=== PATIENT | female | born 1980 | race Caucasian/White ===

== ENCOUNTER 2018-09-17 17:06 | Emergency (ER) | payer OTHER, SELFPAY ==
[2018-09-17 17:18] VITALS: BP 137/87; PULSE 89; RESP 22; TEMP 36.8; O2SAT 97; BMI 36.9
[2018-09-17 17:36] LABS: Bacteria Urine None Seen
--- NOTE | 2018-09-17 17:42 | ED.ABDPAIN ---
HPI - Abdominal Pain <[facility] - Last Filed: 09/17/18 22:32> General Chief Complaint: Abdominal Pain Stated Complaint: INTENSE ABDOMINAL PAIN Time Seen by Provider: 09/17/18 17:26 Source: patient and family Mode of arrival: ambulatory Limitations: no limitations History of Present Illness HPI narrative: Patient is a nonsmoker 38-year-old female who chief complaint of right lower quadrant pain and back pain, diarrhea, and presents with vomiting x 1. She denies fever, dysuria, chest pain or shortness of breath. Pain and diarrhea have been ongoing for 6 weeks, worsening today. She has had gastric sleeve in 2016, an appy and gallbladder removal. She has also had a hysterectomy and states she only has her ovaries left. She has a history of PCOS. She later admits that she is concerned she is BRCA2 positive and has been attempting to find primary care locally but has been unable to do so. Related Data Previous Rx's Medication Instructions Recorded escitalopram 20 mg tablet 20 mg PO DAILY #30 tab MDD 20 mg 05/28/18 ondansetron 4 mg PO TID PRN 5 Days #20 tab 09/17/18 oxycodone-acetaminophen 1 tab PO Q4-6H PRN #14 tab 09/17/18 Allergies Allergy/AdvReac Type Severity Reaction Status Date / Time NSAIDS (Non-Steroidal AdvReac Verified 09/17/18 17:18 Anti-Inflamma Review of Systems <[facility] - Last Filed: 09/17/18 22:32> Review of Systems GENERAL: Denies chills, fatigue, malaise, fever, sweats. HEENT: Denies sinus pain, ear pain, sore throat, difficulty swallowing, dizziness. RESPIRATORY: Denies dyspnea, cough, wheezing, hemoptysis, sputum. CARDIOVASCULAR: Denies chest pain, palpitations, orthopnea, edema, GASTROINTESTINAL: see HPI : Denies dysuria, frequency, incontinence, hematuria, urinary retention. MUSCULOSKELETAL: denies weakness, joint pain, or bony pain SKIN: Denies rash, skin lesions, or other NEUROLOGIC: Denies weakness, headache, numbness, change in speech, confusion, seizures, incoordination. PSYCHIATRIC: No concerning psychosocial issues. 12 point review of systems is negative except for those stated above Exam <[facility] - Last Filed: 09/17/18 22:32> Narrative Exam Narrative: GENERAL: This is a well-nourished, well-developed patient, laying on side in position HEAD: Atraumatic. Normocephalic. No temporal or scalp tenderness. EYES: Pupils equal round and reactive. Extraocular motions intact. No scleral icterus. No injection or drainage. ENT: Nose without bleeding, purulent drainage or septal hematoma. Throat without erythema, tonsillar hypertrophy or exudate. Uvula midline. Airway patent. NECK: Trachea midline. No JVD or lymphadenopathy. Supple, nontender, no meningeal signs. CARDIOVASCULAR: Regular rate and rhythm without murmurs, gallops, or rubs. RESPIRATORY: Clear to auscultation. Breath sounds equal bilaterally. No wheezes, rales, or rhonchi. No cough. No increased respiratory effort. GASTROINTESTINAL: Abdomen soft, tenderness to palpation right lower quadrant nondistended. No hepato-splenomegaly, or palpable masses. No guarding. EXTREMITIES: No clubbing, cyanosis, or edema. No joint tenderness, effusion, or edema noted. BACK: Nontender without deformity or crepitance. Bilateral flank tenderness NEURO: AOx3. SKIN: No rash or erythema. Initial Vital Signs Initial Vital Signs: Vital Signs Temperature 98.2 F 09/17/18 17:18 Pulse Rate 89 09/17/18 17:18 Respiratory Rate 22 09/17/18 17:18 Blood Pressure 137/87 09/17/18 17:18 Pulse Oximetry 97 09/17/18 17:18 <Liliana Jon DO - Last Filed: 09/18/18 02:58> Initial Vital Signs Initial Vital Signs: Vital Signs Temperature 98.2 F 09/17/18 17:18 Pulse Rate 89 09/17/18 17:18 Respiratory Rate 22 09/17/18 17:18 Blood Pressure 137/87 09/17/18 17:18 Pulse Oximetry 97 09/17/18 17:18 Course <GAURAV EricksonBC - Last Filed: 09/17/18 22:32> Course Narrative: A checked on the patient several times that her stay in the emergency department. At 18:30 the patient declined further pain medication. At 21:00 I discussed with the patient her CT results and that CT illustrated a large mass on her right adnexa. Discussed plan to obtain an ultrasound to further evaluate this mass. Patient is okay with this plan. Offered Toradol for pain, which she states she can take. Patient declined further nausea medication at this point time. at 22:30 I discussed the ultrasound findings of a simple ovarian cyst. Orders Ordered: ED Orders 09/17/18 18:06 CT abdomen pelvis w con Stat 09/17/18 21:04 US pelvic complete Stat Discontinued Medications Sodium Chloride (Normal Saline 0.9%) 1,000 mls @ 1,000 mls/hr IV BOLUS ONE Stop: 09/17/18 18:34 Last Infusion: 09/17/18 22:43 Dose: 0 mls/hr Infusion: 09/17/18 20:19 Dose: 0 mls/hr Admin: 09/17/18 17:53 Dose: 1,000 mls/hr Sodium Chloride (Normal Saline 0.9%) 1,000 mls @ 1,000 mls/hr IV BOLUS ONE Stop: 09/17/18 22:12 Last Infusion: 09/17/18 22:48 Dose: 1,000 mls/hr Admin: 09/17/18 21:35 Dose: 1,000 mls/hr Ketorolac Tromethamine (Toradol) 30 mg IV NOW ONE Stop: 09/17/18 21:14 Last Admin: 09/17/18 21:34 Dose: 30 mg Morphine Sulfate (Morphine) 4 mg IV NOW ONE Stop: 09/17/18 17:42 Last Admin: 09/17/18 17:53 Dose: 4 mg Ondansetron HCl (Zofran) 4 mg IV NOW ONE Stop: 09/17/18 17:42 Last Admin: 09/17/18 17:53 Dose: 4 mg Ondansetron HCl (Zofran Odt Prepack) 1 bottle MISC SEEINSTR ONE Stop: 09/17/18 22:16 Last Admin: 09/17/18 22:36 Dose: 1 bottle Oxycodone/Acetaminophen (Endocet 5/325 Prepack) 1 bottle MISC SEEINSTR ONE Stop: 09/17/18 22:16 Last Admin: 09/17/18 22:36 Dose: 1 bottle Vital Signs - 8 hr 09/17/18 20:30 09/17/18 21:44 Pulse Rate 60 66 Respiratory Rate 16 18 Blood Pressure [Left Arm] 131/74 126/79 Pulse Oximetry 98 99 <Liliana Jon DO - Last Filed: 09/18/18 02:58> Orders Ordered: ED Orders 09/17/18 18:06 CT abdomen pelvis w con Stat 09/17/18 21:04 US pelvic complete Stat Discontinued Medications Sodium Chloride (Normal Saline 0.9%) 1,000 mls @ 1,000 mls/hr IV BOLUS ONE Stop: 09/17/18 18:34 Last Infusion: 09/17/18 22:43 Dose: 0 mls/hr Infusion: 09/17/18 20:19 Dose: 0 mls/hr Admin: 09/17/18 17:53 Dose: 1,000 mls/hr Sodium Chloride (Normal Saline 0.9%) 1,000 mls @ 1,000 mls/hr IV BOLUS ONE Stop: 09/17/18 22:12 Last Infusion: 09/17/18 22:48 Dose: 1,000 mls/hr Admin: 09/17/18 21:35 Dose: 1,000 mls/hr Ketorolac Tromethamine (Toradol) 30 mg IV NOW ONE Stop: 09/17/18 21:14 Last Admin: 09/17/18 21:34 Dose: 30 mg Morphine Sulfate (Morphine) 4 mg IV NOW ONE Stop: 09/17/18 17:42 Last Admin: 09/17/18 17:53 Dose: 4 mg Ondansetron HCl (Zofran) 4 mg IV NOW ONE Stop: 09/17/18 17:42 Last Admin: 09/17/18 17:53 Dose: 4 mg Ondansetron HCl (Zofran Odt Prepack) 1 bottle MISC SEEINSTR ONE Stop: 09/17/18 22:16 Last Admin: 09/17/18 22:36 Dose: 1 bottle Oxycodone/Acetaminophen (Endocet 5/325 Prepack) 1 bottle MISC SEEINSTR ONE Stop: 09/17/18 22:16 Last Admin: 09/17/18 22:36 Dose: 1 bottle Vital Signs - 8 hr 09/17/18 20:30 09/17/18 21:44 Pulse Rate 60 66 Respiratory Rate 16 18 Blood Pressure [Left Arm] 131/74 126/79 Pulse Oximetry 98 99 MDM - Abdominal Pain <BECKY Erickson-BC - Last Filed: 09/17/18 22:32> Lab Data Attestation: I reviewed the patient's lab results. Result diagrams: 09/17/18 17:20 09/17/18 17:20 Lab Results 09/17/18 09/17/18 09/17/18 Range/Units 17:20 17:20 17:23 WBC 7.8 (4.5-11.0) X10^3/uL RBC 4.56 (4.0-5.2) X10^6/uL Hgb 14.2 (12.0-16.0) g/dL Hct 42.0 (36-46) % MCV 92.1 (80-100) fL MCH 31.1 (26-34) PG MCHC 33.7 (30-36) % RDW 13.0 (11.6-14.8) % Plt Count 190 (150-400) X10^3/uL Neut % (Auto) 56.5 (50-75) % Lymph % (Auto) 30.6 (25-40) % [place] % (Auto) 11.2 (3-14) % Eos % (Auto) 1.2 L (2-4) % Baso % (Auto) 0.5 (0-2) % Neut # (Auto) 4400 (8953-4981) /uL Sodium 138 (137-145) mmol/L Potassium 3.7 (3.4-5.1) mmol/L Chloride 105 (98-107) mmol/L Carbon Dioxide 24 (22-32) mmol/L BUN 13 (7-17) mg/dL Creatinine 0.50 L (0.52-1.04) mg/dL Estimated GFR > 60.0 (>60) mL/min BUN/Creatinine Ratio 26.0 H (6-22) Glucose 118 H (70-100) mg/dL Lactate (0.7-2.1) mmol/L Calcium 9.0 (8.4-10.2) mg/dL Total Bilirubin 1.0 (0.2-1.3) mg/dL AST 39 H (14-36) IU/L ALT 47 (9-52) IU/L Alkaline Phosphatase 57 (38-126) U/L Total Creatine Kinase 56 (30-135) U/L CK-MB (CK-2) TNP CK-MB (CK-2) Rel Index TNP Troponin I < 0.012 (0.01-0.034) ng/mL Total Protein 7.1 (6.3-8.2) g/dL Albumin 4.2 (3.5-5.0) g/dL Globulin 2.9 (1.7-4.1) g/dL Albumin/Globulin Ratio 1.4 (1.0-2.8) Amylase 35 (30-110) U/L Lipase 82 (23-300) U/L Urine RBC 5-10/hpf H (0-5/HPF) Urine WBC 5-10/hpf H (0-5/HPF) Ur Squamous Epith Cells 5-10 /hpf H Urine Bacteria None seen (None) Ur Culture Indicated? Cult not indicated Micro UA Comment Not Reportable 09/17/18 Range/Units 17:45 WBC (4.5-11.0) X10^3/uL RBC (4.0-5.2) X10^6/uL Hgb (12.0-16.0) g/dL Hct (36-46) % MCV (80-100) fL MCH (26-34) PG MCHC (30-36) % RDW (11.6-14.8) % Plt Count (150-400) X10^3/uL Neut % (Auto) (50-75) % Lymph % (Auto) (25-40) % [place] % (Auto) (3-14) % Eos % (Auto) (2-4) % Baso % (Auto) (0-2) % Neut # (Auto) (6138-0583) /uL Sodium (137-145) mmol/L Potassium (3.4-5.1) mmol/L Chloride (98-107) mmol/L Carbon Dioxide (22-32) mmol/L BUN (7-17) mg/dL Creatinine (0.52-1.04) mg/dL Estimated GFR (>60) mL/min BUN/Creatinine Ratio (6-22) Glucose (70-100) mg/dL Lactate 1.3 (0.7-2.1) mmol/L Calcium (8.4-10.2) mg/dL Total Bilirubin (0.2-1.3) mg/dL AST (14-36) IU/L ALT (9-52) IU/L Alkaline Phosphatase (38-126) U/L Total Creatine Kinase (30-135) U/L CK-MB (CK-2) CK-MB (CK-2) Rel Index Troponin I (0.01-0.034) ng/mL Total Protein (6.3-8.2) g/dL Albumin (3.5-5.0) g/dL Globulin (1.7-4.1) g/dL Albumin/Globulin Ratio (1.0-2.8) Amylase (30-110) U/L Lipase (23-300) U/L Urine RBC (0-5/HPF) Urine WBC (0-5/HPF) Ur Squamous Epith Cells Urine Bacteria (None) Ur Culture Indicated? Micro UA Comment Point of care testing: Urine Dip Bedside Urine Glucose Negative Bedside Urine Bilirubin - Negative Bedside Urine Ketone - Negative Urine Specific [place] 1.030 Bedside Urine Occult Blood + Bedside Urine pH 6.0 Bedside Urine Protein - Negative Bedside Urine Urobilinogen - Negative Bedside Urine Nitrite - Negative Bedside Urine Leukocytes - Negative Esterase Imaging Data pelvic US: Radiologist's impression: View Report History Print [address] [address] Ultrasound Report Signed Patient: Susan Randle MR#: [id number] : 1980 Acct:[id number] Age/Sex: 38 / F Date of Service: 09/17/18 Loc: ED Accession Number: [id number] Procedure: US pelvic complete Ordering Provider: Bri Palomino [facility]- PROCEDURE: US PELVIC COMPLETE INDICATIONS: RIGHT PELVIC PAIN; ABNORMAL CT TECHNIQUE: Real-time scanning was performed of the pelvic organs, with image documentation. Additional endovaginal scanning was necessary due to incomplete visualization of the adnexal and endometrial structures by transabdominal scanning. COMPARISON: [facility], CT, CT ABDOMEN PELVIS W CON, 09/17/2018, 19:38. FINDINGS: Transabdominal scanning: Limited scanning through the kidneys shows no hydronephrosis. No pathologic free abdominal or pelvic fluid. Endovaginal scanning: Uterus: Uterus is surgically absent. Ovaries: On the left the ovary measures 2.6 x 3.5 x 3.2 cm and contains a 1.9 cm simple cyst. Above the left ovary there is a 4 x 4 by 9 cm serpiginous tubular fluid-filled structure most likely hydrosalpinx. The right ovary is not seen as a normal structure but there is a relatively large simple appearing cyst at the right adnexa measuring up to 6.8 x 5.6 x 7.4 cm. IMPRESSION: A absent uterus. Large simple cyst at the right adnexa and a normal appearing right ovary could not be located. These cysts identified on the right measures up to 7.4 cm and is best seen by transabdominal scanning. Followup pelvic ultrasound in 6-8 weeks to confirm resolution of this finding is recommended. The left ovary contains a 1.9 cm simple cyst and immediately above the left ovary is a tubular serpiginous fluid-filled structure discussed above most likely hydrosalpinx. Dictated by: Dony William M.D. on 09/17/2018 at 21:58 Approved by: Dony William M.D. on 09/17/2018 at 22:[address]: Radiologist's impression: [place] [address] CT Scan Report Signed Patient: Susan Randle MR#: [id number] : 1980 Acct:[id number] Age/Sex: 38 / F Date of Service: 09/17/18 Loc: ED Accession Number: [id number] Procedure: CT abdomen pelvis w con Ordering Provider: Bri Palomino [facility] PROCEDURE: CT ABDOMEN PELVIS W CON INDICATIONS: abd pain, mult abd surg TECHNIQUE: After the administration of intravenous contrast, 5 mm thick sections acquired from the diaphragm to the symphysis. 5 mm coronal and sagittal reformats were acquired. For radiation dose reduction, the following was used: automated exposure control, adjustment of mA and/or kV according to patient size. COMPARISON: None. FINDINGS: Image quality: Excellent. ABDOMEN: Lung bases: Lung bases are clear. Heart size is normal. Solid organs: Liver is normal in size and enhancement. Gallbladder has been previously resected. Biliary system is non dilated. Pancreas enhances normally. Spleen is normal in size and enhancement. No adrenal nodules. Kidneys demonstrate normal size and enhancement, without hydronephrosis. Peritoneum and bowel: Bowel loops demonstrate normal wall thickness and caliber. No free fluid or air. A pattern of surgical clips along the gastric margin superiorly suggest prior gastric reduction surgery. Note is made of a large cystic structure at the right adnexa measuring up to 6.7 cm AP and 6.3 cm transverse, with a craniocaudad dimension of 6.0 cm. There also is a set of 2 adjacent cysts at the left ovary, the largest of which measures up to 3.9 cm and the smaller of which measures only 2.2 cm. No adjacent free fluid or evidence of hemorrhagic cyst is found. Nodes and vessels: No retroperitoneal or mesenteric adenopathy by size criteria. Aorta and inferior vena cava are normal in size. Miscellaneous: No ventral hernias. PELVIS: Genitourinary: Bladder wall thickness is normal. Miscellaneous: No inguinal hernias or adenopathy. Bones: No suspicious bony lesions. No vertebral body compression fractures. IMPRESSION: 1. Prior cholecystectomy. 2. Gastric reduction surgery without evidence of operative complication. 3. Large right adnexal cystic structure may represent a cystic neoplasm. Followup pelvic ultrasound in 6-8 weeks is recommended to confirm resolution of this large abnormality which measures up to 6.7 cm. 4. Prominent cystic structure at the left ovary adjacent to the smaller cysts, with the larger structure measuring up to 3.9 cm. Pelvic ultrasound is recommended in 6-8 weeks to confirm resolution. Dictated by: Dony William M.D. on 09/17/2018 at 20:51 Approved by: Dony William M.D. on 09/17/2018 at 20:54 MDM Narrative Medical decision making narrative: Patient is a 38-year-old female who presents with chief complaint of flank pain and right lower quadrant pain. She had a grossly normal lab work, is afebrile and hemodynamically stable. Given her history of multiple abdominal surgeries combined with severe pain, obtained a CT scan which illustrated a large cystic structure the right adnexa. I also obtained a pelvic ultrasound, which confirmed the presence of a large right likely ovarian cyst. She was treated with Zofran, pain medication and fluids in the emergency department. I discussed at length follow up with primary care provider. Discussed come back to the emergency department for any acute concerns. Patient does not have any questions or concerns upon discharge. <Liliana Jon, DO - Last Filed: 09/18/18 02:58> Lab Data Lab Results 09/17/18 09/17/18 09/17/18 Range/Units 17:20 17:20 17:23 WBC 7.8 (4.5-11.0) X10^3/uL RBC 4.56 (4.0-5.2) X10^6/uL Hgb 14.2 (12.0-16.0) g/dL Hct 42.0 (36-46) % MCV 92.1 (80-100) fL MCH 31.1 (26-34) PG MCHC 33.7 (30-36) % RDW 13.0 (11.6-14.8) % Plt Count 190 (150-400) X10^3/uL Neut % (Auto) 56.5 (50-75) % Lymph % (Auto) 30.6 (25-40) % [place] % (Auto) 11.2 (3-14) % Eos % (Auto) 1.2 L (2-4) % Baso % (Auto) 0.5 (0-2) % Neut # (Auto) 4400 (8685-3286) /uL Sodium 138 (137-145) mmol/L Potassium 3.7 (3.4-5.1) mmol/L Chloride 105 (98-107) mmol/L Carbon Dioxide 24 (22-32) mmol/L BUN 13 (7-17) mg/dL Creatinine 0.50 L (0.52-1.04) mg/dL Estimated GFR > 60.0 (>60) mL/min BUN/Creatinine Ratio 26.0 H (6-22) Glucose 118 H (70-100) mg/dL Lactate (0.7-2.1) mmol/L Calcium 9.0 (8.4-10.2) mg/dL Total Bilirubin 1.0 (0.2-1.3) mg/dL AST 39 H (14-36) IU/L ALT 47 (9-52) IU/L Alkaline Phosphatase 57 (38-126) U/L Total Creatine Kinase 56 (30-135) U/L CK-MB (CK-2) TNP CK-MB (CK-2) Rel Index TNP Troponin I < 0.012 (0.01-0.034) ng/mL Total Protein 7.1 (6.3-8.2) g/dL Albumin 4.2 (3.5-5.0) g/dL Globulin 2.9 (1.7-4.1) g/dL Albumin/Globulin Ratio 1.4 (1.0-2.8) Amylase 35 (30-110) U/L Lipase 82 (23-300) U/L Urine RBC 5-10/hpf H (0-5/HPF) Urine WBC 5-10/hpf H (0-5/HPF) Ur Squamous Epith Cells 5-10 /hpf H Urine Bacteria None seen (None) Ur Culture Indicated? Cult not indicated Micro UA Comment Not Reportable 09/17/18 Range/Units 17:45 WBC (4.5-11.0) X10^3/uL RBC (4.0-5.2) X10^6/uL Hgb (12.0-16.0) g/dL Hct (36-46) % MCV (80-100) fL MCH (26-34) PG MCHC (30-36) % RDW (11.6-14.8) % Plt Count (150-400) X10^3/uL Neut % (Auto) (50-75) % Lymph % (Auto) (25-40) % [place] % (Auto) (3-14) % Eos % (Auto) (2-4) % Baso % (Auto) (0-2) % Neut # (Auto) (9426-2243) /uL Sodium (137-145) mmol/L Potassium (3.4-5.1) mmol/L Chloride (98-107) mmol/L Carbon Dioxide (22-32) mmol/L BUN (7-17) mg/dL Creatinine (0.52-1.04) mg/dL Estimated GFR (>60) mL/min BUN/Creatinine Ratio (6-22) Glucose (70-100) mg/dL Lactate 1.3 (0.7-2.1) mmol/L Calcium (8.4-10.2) mg/dL Total Bilirubin (0.2-1.3) mg/dL AST (14-36) IU/L ALT (9-52) IU/L Alkaline Phosphatase (38-126) U/L Total Creatine Kinase (30-135) U/L CK-MB (CK-2) CK-MB (CK-2) Rel Index Troponin I (0.01-0.034) ng/mL Total Protein (6.3-8.2) g/dL Albumin (3.5-5.0) g/dL Globulin (1.7-4.1) g/dL Albumin/Globulin Ratio (1.0-2.8) Amylase (30-110) U/L Lipase (23-300) U/L Urine RBC (0-5/HPF) Urine WBC (0-5/HPF) Ur Squamous Epith Cells Urine Bacteria (None) Ur Culture Indicated? Micro UA Comment Point of care testing: Urine Dip Bedside Urine Glucose Negative Bedside Urine Bilirubin - Negative Bedside Urine Ketone - Negative Urine Specific [place] 1.030 Bedside Urine Occult Blood + Bedside Urine pH 6.0 Bedside Urine Protein - Negative Bedside Urine Urobilinogen - Negative Bedside Urine Nitrite - Negative Bedside Urine Leukocytes - Negative Esterase Discharge Plan Departure Patient Disposition: Home Clinical Impression: Ovarian cyst, Abdominal pain Discharge Date/Time: 09/17/18 22:50 Interventions: ED Discharge Assessment Last Done: 09/17/18 22:49 Instructions: DI for Ovarian Cyst, DI for Abdominal Pain-Adult Activity Restrictions/Additional Instructions: Your CT scan and ultrasound showed a large ovarian cyst on your right side. Also shows a smaller cyst on your left side. Please follow-up with primary care provider for further workup including imaging in the future if needed. I have given you a prescription of pain medication and nausea medication. Please do not take Tylenol in addition to the pain medication. Please be aware can be sedating so do not drive on it and please be aware can be constipating so please drink lots of fluids any lots of fiber. Come back to the emergency department for any acute concerns. I have given you a list of primary care providers accepting new patients in the area, so hopefully one of these providers be able to see you. Prescriptions: New oxycodone-acetaminophen 5-325 mg tablet 1 tab PO Q4-6H PRN (Reason: pain) Qty: 14 RF: 0 ondansetron 4 mg tablet,disintegrating 4 mg PO TID PRN (Reason: nausea and vomiting) 5 Days Qty: 20 RF: 0 No Action escitalopram oxalate 20 mg tablet 20 mg PO DAILY MDD 20 mg Qty: 30 RF: 5 <Liliana Jon DO - Last Filed: 09/18/18 02:58> [facility] ED Attending [place] Attestation: I was immediately available in the department for consultation. Documentation has been reviewed. I agree with assessment and plan.
[2018-09-17 17:43] LABS: RBC Urine 5-10/HPF (0-5/HPF); Squamous Epithelial Cell Urine 5-10 /HPF; WBC Urine 5-10/HPF (0-5/HPF)
[2018-09-17 17:44] LABS: Culture Indicated Urine Cult Not Indicated
[2018-09-17 17:45] LABS: Add Manual Diff / Slide Review NO; Basophils Percent Auto 0.5 % (0-2); Eosinophils Percent Auto 1.2 % (2-4); Hemoglobin 14.2 g/dL (12.0-16.0); Lymphocytes Percent Auto 30.6 % (25-40); Mean Corpuscular HGB Conc 33.7 % (30-36); Mean Corpuscular Hemoglobin 31.1 PG (26-34); Mean Corpuscular Volume 92.1 fL (80-100); Monocytes Percent Auto 11.2 % (3-14); Neutrophils Absolute Auto 4400 /uL (1500-7000); Neutrophils Percent Auto 56.5 % (50-75); Platelet Count 190 X10^3/uL (150-400); Red Blood Cell Count 4.56 X10^6/uL (4.0-5.2); White Blood Cell Count 7.8 X10^3/uL (4.5-11.0)
[2018-09-17 17:49] LABS: Alanine Aminotransferase 47 IU/L (9-52); Albumin 4.2 g/dL (3.5-5.0); Albumin Globulin Ratio 1.4 (1.0-2.8); Alkaline Phosphatase 57 U/L (38-126); Amylase 35 U/L (30-110); Aspartate Aminotransferase 39 IU/L (14-36); Blood Urea Nitrogen 13 mg/dL (7-17); Carbon Dioxide 24 mmol/L (22-32); Chloride 105 mmol/L (98-107); Creatine Kinase 56 U/L (30-135); Estimated Glomerular Filt Rate > 60.0 mL/min (>60); Globulin 2.9 g/dL (1.7-4.1); Glucose 118 mg/dL (70-100); HEMOLYSIS 19 (0-50); Lipase 82 U/L (23-300); Potassium 3.7 mmol/L (3.4-5.1); Sodium 138 mmol/L (137-145); Total Protein 7.1 g/dL (6.3-8.2)
[2018-09-17] MEDS: MORPHINE 4 MG/ML INJ IV (17:53)
[2018-09-17] MEDS: SODIUM CHLORIDE 0.9% 1,000 ML 1000 ML IV ×2 (17:53→21:35)
[2018-09-17] MEDS: ONDANSETRON 4 MG/2 ML INJ IV (17:53)
[2018-09-17 18:03] LABS: Lactate (Lactic Acid) 1.3 mmol/L (0.7-2.1)
[2018-09-17 18:04] LABS: Troponin I < 0.012 ng/mL (0.01-0.034)
--- NOTE | 2018-09-17 18:06 | DI.CT.S_ITS ---
PROCEDURE: CT ABDOMEN PELVIS W CON INDICATIONS: abd pain, mult abd surg TECHNIQUE: After the administration of intravenous contrast, 5 mm thick sections acquired from the diaphragm to the symphysis. 5 mm coronal and sagittal reformats were acquired. For radiation dose reduction, the following was used: automated exposure control, adjustment of mA and/or kV according to patient size. COMPARISON: None. FINDINGS: Image quality: Excellent. ABDOMEN: Lung bases: Lung bases are clear. Heart size is normal. Solid organs: Liver is normal in size and enhancement. Gallbladder has been previously resected. Biliary system is non dilated. Pancreas enhances normally. Spleen is normal in size and enhancement. No adrenal nodules. Kidneys demonstrate normal size and enhancement, without hydronephrosis. Peritoneum and bowel: Bowel loops demonstrate normal wall thickness and caliber. No free fluid or air. A pattern of surgical clips along the gastric margin superiorly suggest prior gastric reduction surgery. Note is made of a large cystic structure at the right adnexa measuring up to 6.7 cm AP and 6.3 cm transverse, with a craniocaudad dimension of 6.0 cm. There also is a set of 2 adjacent cysts at the left ovary, the largest of which measures up to 3.9 cm and the smaller of which measures only 2.2 cm. No adjacent free fluid or evidence of hemorrhagic cyst is found. Nodes and vessels: No retroperitoneal or mesenteric adenopathy by size criteria. Aorta and inferior vena cava are normal in size. Miscellaneous: No ventral hernias. PELVIS: Genitourinary: Bladder wall thickness is normal. Miscellaneous: No inguinal hernias or adenopathy. Bones: No suspicious bony lesions. No vertebral body compression fractures. IMPRESSION: 1. Prior cholecystectomy. 2. Gastric reduction surgery without evidence of operative complication. 3. Large right adnexal cystic structure may represent a cystic neoplasm. Followup pelvic ultrasound in 6-8 weeks is recommended to confirm resolution of this large abnormality which measures up to 6.7 cm. 4. Prominent cystic structure at the left ovary adjacent to the smaller cysts, with the larger structure measuring up to 3.9 cm. Pelvic ultrasound is recommended in 6-8 weeks to confirm resolution. Dictated by: Dony William M.D. on 09/17/2018 at 20:51 Approved by: Dony William M.D. on 09/17/2018 at 20:54
[2018-09-17 18:35] VITALS: BP 118/71; PULSE 66; RESP 15; TEMP 36.7; O2SAT 99
[2018-09-17 20:30] VITALS: BP 131/74; PULSE 60; RESP 16; O2SAT 98
--- NOTE | 2018-09-17 21:04 | DI.US.S_ITS ---
PROCEDURE: US PELVIC COMPLETE INDICATIONS: RIGHT PELVIC PAIN; ABNORMAL CT TECHNIQUE: Real-time scanning was performed of the pelvic organs, with image documentation. Additional endovaginal scanning was necessary due to incomplete visualization of the adnexal and endometrial structures by transabdominal scanning. COMPARISON: [facility], CT, CT ABDOMEN PELVIS W CON, 09/17/2018, 19:38. FINDINGS: Transabdominal scanning: Limited scanning through the kidneys shows no hydronephrosis. No pathologic free abdominal or pelvic fluid. Endovaginal scanning: Uterus: Uterus is surgically absent. Ovaries: On the left the ovary measures 2.6 x 3.5 x 3.2 cm and contains a 1.9 cm simple cyst. Above the left ovary there is a 4 x 4 by 9 cm serpiginous tubular fluid-filled structure most likely hydrosalpinx. The right ovary is not seen as a normal structure but there is a relatively large simple appearing cyst at the right adnexa measuring up to 6.8 x 5.6 x 7.4 cm. IMPRESSION: A absent uterus. Large simple cyst at the right adnexa and a normal appearing right ovary could not be located. These cysts identified on the right measures up to 7.4 cm and is best seen by transabdominal scanning. Followup pelvic ultrasound in 6-8 weeks to confirm resolution of this finding is recommended. The left ovary contains a 1.9 cm simple cyst and immediately above the left ovary is a tubular serpiginous fluid-filled structure discussed above most likely hydrosalpinx. Dictated by: Dony William M.D. on 09/17/2018 at 21:58 Approved by: Dony William M.D. on 09/17/2018 at 22:02
[2018-09-17] MEDS: KETOROLAC 60 MG/2 ML VIAL 30 MG IV (21:34)
[2018-09-17 21:44] VITALS: BP 126/79; PULSE 66; RESP 18; O2SAT 99
[2018-09-17] MEDS: OXYCODONE/APAP 5/325 PREPACK 1 BOTTLE MISC (22:36)
[2018-09-17] MEDS: ONDANSETRON 4 MG ODT PREPACK 1 BOTTLE MISC (22:36)
== END 2018-09-17 22:50 | disposition home or self-care (01) ==
PROVIDERS: Emergency Provider Nurse Practitioner Family
DX: N83.209 Unspecified ovarian cyst, unspecified side (principal); R10.9 Unspecified abdominal pain
CPT/HCPCS: 36591; 74177; 76830; 76856; 80053; 81003; 81015; 82150; 82550; 83605; 83690; 84484; 85025; 93005; 96361; 96374; 96375; 99284; 99285; J1885; J2270; J2405; Q9967

== ENCOUNTER → 2018-09-18 11:51 | Outpatient (CLI) | payer OTHER, SELFPAY ==
[2018-09-18 13:33] LABS: Cancer Antigen 125 7 U/mL (0-35)
== END ==
PROVIDERS: Visit Provider Obstetrics & Gynecology
DX: Z15.01 Genetic susceptibility to malignant neoplasm of breast (principal); Z15.02 Genetic susceptibility to malignant neoplasm of ovary; Z15.09 Genetic susceptibility to other malignant neoplasm
CPT/HCPCS: 36415; 86304

== ENCOUNTER 2018-09-19 09:04 | Day surgery (SDC) | payer OTHER, SELFPAY ==
[2018-09-19] VITALS (10 sets, daily range): BP systolic 119–138; BP diastolic 63–87; PULSE 65–107; RESP 6–20; TEMP 36–36.5; O2SAT 88–98; BMI 34.8
--- NOTE | 2018-09-19 | PATH_ITS ---
Note [facility] Accession Number: [id number] TESTS RESULT FLAG UNITS REF RANGE LAB Clinician Provided Cytology Information No. of containers..01 ThinPrep Vial 01 LEFT FALLOPIAN TUBR DIAGNOSIS: 02 LEFT FALLOPIAN TUBR NEGATIVE FOR MALIGNANT CELLS. THIS INTERPRETATION INCLUDES EVALUATION OF A CELL BLOCK. Pathologist ICD10: 02 N83.202 02 Alfredo Barroso MD, PhD, Pathologist NPI- [id number] Susanne Wells, Financial Wellness Coach ([facility] [place]) 01 20 CC, PINK, CLEAR /LCS FLAG LEGEND: L-Low Normal,H-High Normal,LL-Alert Low,HH-Alert High <-Panic Low,>-Panic High,A-Abnormal,AA-Critical Abnormal Performed at: 01 =Z [facility] [address], [place] [address] Ryan Garcia MD, 02 LCLWA [facility] [address] [place] [id number] Monique Will MD, Performed at: 01 [facility] [address], [place], [place] [id number] MD Ryan Garcia MD Phone: [phone]
[2018-09-19] MEDS: LACTATED RINGERS 1,000 ML 100 ML IV ×2 (09:45→10:54)
--- NOTE | 2018-09-19 10:38 | SUR.OPER ---
Lithotomy on padded OR bed. Renville Pad Positioner under torso. Head on pillow, arms padded and tucked at sides. Legs secured in padded yellow fins stirrups.
[2018-09-19] MEDS: BUPIVACAINE 0.5% W/ EPI (PF) VIAL 30 ML INJ (11:13)
--- NOTE | 2018-09-19 12:37 | PM.PREOP ---
Pre-operative Note Interval Note History & Physical reviewed/Exam performed by Physician: Yes Changes to H&P: No
[2018-09-19] MEDS: fentaNYL 100 MCG/2 ML INJ 50 MCG IV ×2 (12:41→12:55)
--- NOTE | 2018-09-19 13:50 | SUR.PHASEII ---
Pt tolerating toast. Continuous pulse ox in place. O2 sat maintaining in upper 90s.
[2018-09-19] MEDS: OXYCODONE/ACETAMINOPHEN 5/325 TABLET 1 TAB PO (13:54)
--- NOTE | 2018-09-19 21:27 | PATH_ITS ---
Specimen ID: [id number] Control ID: [id number] [facility] PATHOLOGY ONLY [address] 09 [facility] [address] [address] [facility] [address] Patient Details : 1980 Age(y/m/d): Gender: F SSN: Specimen Details Date collected: 09/19/20182126 Local Date received: 09/19/2018 Date entered: 09/19/2018 Date reported: 10/03/2018 1408 ET Physician Details Ordering: Nayana Borjas Referring: ID: YARITZA Additional Information: Clinical Info: [id number] Pathology Report Tests Ordered: Clinician Provided ICD Code(s) & Clinical History: Material Submitted: () PART A: RIGHT OVARY PART B: LEFT OVARY AND FALLOPIAN TUBE Gross Description: (01) A. Received in formalin, labeled with the patient's name and right ovary, is a 6.5 x 5.0 x 3.5 cm ovary. The outer surface is monroe-brown lobulated and intact. There is an attached possible segment of fallopian tube on the outer surface which is 1.5 x 0.5 cm. The fimbriae are not present. Sectioning reveals a dilated lumen measuring up to 0.3 cm. Opening the ovary reveals a multiloculated cystic cut surface filled with yellow watery fluid. No excrescences are present. The cyst lining is smooth. There are a few hemorrhage corpora lutea as well. The cysts range from 0.3 cm to 5.2 cm in greatest dimension. Nursing Informatics Analyst sections are submitted as follows: A1 - entire possible fallopian tube and a section through the hemorrhagic portion of the cysts; A2-A4 - additional petroleum products sales representative sections through the cysts. B. Received in formalin, labeled with the patient's name and left, is a 5.5 x 5.0 x 3.0 cm ovary. The outer surface is monroe-brown lobulated congested and intact. No fallopian tube is present. Sectioning reveals a multiloculated cystic cut surface. The cysts have smooth to wrinkled linings without excrescences. They range from 0.5 cm to 2.7 cm in greatest dimension. There are also several surrounding corpora lutea. Nursing Informatics Analyst sections are submitted as B1-B3. (SB:[id number]) /MRV Diagnosis: (02) A. Right Ovary, Salpingo-oophorectomy: Benign multiloculated serous cystadenoma (6.5 cm) and multiple, benign, hemorrhagic corpus luteum cysts. Small segment of fallopian tube with non-specific serosal adhesions. B. Left Ovary and Fallopian Tube, Salpingo-oophorectomy: Benign multiloculated serous cystadenoma (5.5 cm in greatest dimension) with follicular cysts and prominent corpus luteum cysts, one hemorrhagic. Adherent segments of fallopian tube with hydrosalpinx. MRV/09/25/2018 Pathologist Provided ICD Code(s): (02) D27.0, D27.1 CPT Codes: (02) 185826, [id number] Electronically signed by (02) Emily Haji MD, Pathologist NPI- [id number]
--- NOTE | 2018-10-13 08:04 | PM.HP.1 ---
History of Present Illness Date Patient Seen: 09/19/18 Time Patient Seen: 10:30 Chief complaint: [id number] Narrative: Patient is a 38-year-old with a right ovarian mass causing pain She presents for laparoscopic bilateral salpingo-oophorectomy. Patient History Medical History Anxiety and depression (Acute) H/O: hysterectomy (Acute) PCOS (polycystic ovarian syndrome) (Acute) Surgical History History of cholecystectomy (Acute) Hx of abdominal surgery (Acute ~2016) Hx of appendectomy (Acute) Family & Social History Social History: household members spouse,children Tobacco & Substance use: Smoking Status Never smoker Meds Home Medications Medication Instructions Recorded Confirmed Type escitalopram 20 mg tablet 20 mg PO DAILY #30 tab MDD 20 mg 05/28/18 09/19/18 Rx oxycodone-acetaminophen 1 tab PO Q4-6H PRN #14 tab 09/17/18 09/19/18 Rx oxycodone-acetaminophen [Percocet] 2 tab PO Q4-6H PRN #20 tab 09/19/18 Rx fluconazole 100 mg tablet 100 mg PO DAILY #7 tab 09/25/18 Rx estradiol 0.075 mg/24 hr 1 patch TRANSDERMAL .weekly #4 each 10/07/18 10/07/18 Rx semiweekly transdermal patch nystatin 100,000 unit/gram topical 1 applictn TOP TID #30 gram 10/07/18 10/07/18 Rx ointment Allergies Allergy/AdvReac Type Severity Reaction Status Date / Time adhesive tape AdvReac Intermediate Verified 09/19/18 09:19 NSAIDS (Non-Steroidal AdvReac Verified 09/19/18 09:19 Anti-Inflamma Exam Vital Signs (past 8 hours): Oxygen Delivery Method Room Air Oxygen Flow Rate 95 Narrative Exam Narrative: HEENT: [No thyromegaly, no anterior cervical or supraclavicular lymphadenopathy.] Lungs:[Clear to auscultation bilaterally, no wheezes.] Cardiovascular: [Regular rate and rhythm, no murmurs, rubs, or gallops]. Abdomen: [Well-healed scars. No hepatosplenomegaly. No masses palpable.] External genitalia: [Normal] Vagina: [Normal] Cervix: [Normal] Bimanual exam: 7 Week size uterus. Mobile. Right adnexal fullness and tenderness. Left adnexa normal. Rectal: [No masses]. Assessment & Plan (1) Mass of right ovary: Current visit: No Status: Acute Plan: Assessment/Plan Narrative: Assessment: 38-year-old with right ovarian mass Plan: Laparoscopic bilateral salpingo-oophorectomy The risks, benefits, and alternatives to the procedure were explained to the patient. The risks including bleeding, infection, injury to the bowel, bladder, or ureters. She understands these risks and agrees to proceed. A full PAR-Q was held and consent form was signed.
--- NOTE | 2018-10-15 13:32 | PM.GYNOP.1 ---
Operative Date/Time/Diagnoses Date of procedure: 09/19/18 Time of procedure: 15:00 Pre-op diagnosis: 8 cm right ovarian mass Left adnexal mass Pelvic pain Post-op diagnosis: same Procedure: Procedures Operation Date: 09/19/18 10:15 Actual Procedures Side Surgeon p Laparoscopic bilateral BSO and lysis of adhesions Julia Borjas MD Indications: 8 cm right ovarian mass Left adnexal mass Pelvic pain Surgeon: Julia Borjas Anesthesia Type: General Operative Notes Findings: Normal liver 6 week size uterus Normal right tube 8 cm complex right ovarian mass Left hydrosalpinx Left ovary adhesed to the bowel and sidewall Significant adhesions of the left adnexa with left hydrosalpinx Adhesions between the bowel and bladder Torsion of the right ovary Closure Type: primary Specimen(s): left tube & ovary and right tube & ovary Estimated blood loss (mL): 10 Blood products transfused: none Procedure in detail: After informed consent was obtained, the patient was taken to the operating room where she was placed in the dorsal supine position. After adequate general endotracheal anesthesia was achieved, she was placed in the dorsal lithotomy position, and prepped and draped in the usual sterile fashion. A time-out was performed. A bivalve speculum was placed into the vagina and the anterior lip of the cervix grasped with a single-tooth tenaculum. The cervical os was sequentially dilated until the Zumi uterine manipulator could pass easily into the endometrial cavity. The single-tooth tenaculum was removed from the anterior lip of the cervix. The bivalve speculum was removed from the vagina. Attention was then turned to the abdomen where 6 cc of 0.5% Marcaine with epinephrine were injected in the umbilical fold. A 5 mm incision was made. The Veress needle was placed into the peritoneal cavity, and its placement confirmed by aspiration and drop test. The abdominal cavity was insufflated with 4.5 L of CO2. The Veress needle was removed, and a 5 mm trocar was placed without difficulty. Initial inspection of the pelvis and abdomen revealed the findings noted above. 3 other incisions were made, 2 were midway between the pubic symphysis and umbilicus, and the 4th 1 was above the pubic symphysis. The 2 lateral incisions were 5 mm incisions that were put made after 5 cc of 0.5% Marcaine with epinephrine were injected. The suprapubic incision was 12 mm and made after 6 cc of 0.5% Marcaine with epinephrine were injected. 5 mm ports were placed in the lateral incisions. A 12 mm port was placed suprapubically. The right ovary was found to be torsed. It was untwisted. The infundibulopelvic ligament on the right side was cauterized and cut with the PlasmaKinetic. The miso salpinx was cauterized and cut all the way down to the cornua of the uterus. The tube was amputated at the cornua. On the patient's left side the Endo Arleth were used to dissect the tube and ovary away from the sidewall and away from the bowel, with care to avoid the bowel. The tube and ovary were then grasped with an atraumatic grasper. The infundibulopelvic ligament on the left side was cauterized and cut. Hemostasis was achieved. There were adhesions between the bowel and the bladder. These were taken down with the Endo Arleth. An endobag was placed through the suprapubic port. Both tubes and ovaries were placed into the bag. The 12 mm port was removed. The fascia was extended using a Chrissy. The bag edges were brought up through the skin. The large cystic mass on the right ovary was decompressed using a 20 gauge spinal needle and a 20 cc syringe. The bag was then removed from the suprapubic incision. The pelvis was examined there was no bleeding noted. The instruments were removed from the abdomen. The CO2 was allowed to escape. Suprapubic incision was closed on the fascia with 0 Vicryl in a running fashion. The subcutaneous layer was irrigated with warm normal saline. 2 simple interrupted sutures were placed in the sub cutaneous layer to reapproximate. All of the incisions were closed with 4 0 undyed Vicryl in a subcuticular fashion. Steri-Strips, 2 x 2, and op site were placed over all of the incisions. The Zumi uterine manipulator was removed from the uterus. Sponge, lap, and instrument counts were correct x2. The patient tolerated the procedure well, and was taken to PACU in stable condition. Complications: none Post-operative Condition: stable Disposition: PACU Plan for aftercare: Home after recovery
== END 2018-09-19 14:37 | disposition home or self-care (01) ==
PROVIDERS: Visit Provider Obstetrics & Gynecology
PROC: (CPT 58661; principal; 2018-09-19 10:15)
DX: N70.11 Chronic salpingitis (principal); N73.6 Female pelvic peritoneal adhesions (postinfective); N83.12 Corpus luteum cyst of left ovary; N83.11 Corpus luteum cyst of right ovary; D27.0 Benign neoplasm of right ovary; D27.1 Benign neoplasm of left ovary; F41.9 Anxiety disorder, unspecified; F33.41 Major depressive disorder, recurrent, in partial remission; E28.2 Polycystic ovarian syndrome
CPT/HCPCS: 58661; J1100; J2250; J2405; J2704; J3010

== ENCOUNTER → 2018-11-03 14:47 | Outpatient (CLI) | payer OTHER, SELFPAY ==
--- NOTE | 2018-11-03 14:48 | DI.MG.S_ITS ---
BILATERAL DIGITAL SCREENING MAMMOGRAM 3D/2D WITH CAD: 11/03/2018 CLINICAL: Routine screening. Baseline exam. No prior exams were available for comparison. There are scattered fibroglandular elements in both breasts. Current study was also evaluated with a Computer Aided Detection (CAD) system. There is 0.9 cm oval asymmetry in the right breast at 12 o'clock anterior depth. No other significant masses, calcifications, or other findings are seen in either breast. IMPRESSION: INCOMPLETE: NEEDS ADDITIONAL IMAGING EVALUATION The 0.9 cm oval asymmetry in the right breast is indeterminate. Additional views with possible ultrasound are recommended. This exam was interpreted at Station ID: [id number]. NOTE: For mammograms, a report in lay terms will be sent to the patient. Approximately 15% of breast malignancies will not be visualized mammographically. In the management of a palpable breast mass, a negative mammogram must not discourage biopsy of a clinically suspicious lesion. Electronically Signed By: Nahid Johnson M.D. aty/:11/03/2018 18:32:11 letter sent: Additional Imaging Needed ACR BI-RADS Category 0: Incomplete 3340F
== END ==
PROVIDERS: Visit Provider Obstetrics & Gynecology
DX: Z12.31 Encounter for screening mammogram for malignant neoplasm of breast (principal)
CPT/HCPCS: 77063; 77067

== ENCOUNTER → 2018-11-17 09:31 | Outpatient (CLI) | payer OTHER, SELFPAY ==
--- NOTE | 2018-11-17 | DI.MG.S_ITS ---
UNILATERAL RIGHT DIGITAL DIAGNOSTIC MAMMOGRAM 3D/2D WITH ADDITIONAL VIEWS: 11/17/2018 CLINICAL: Additional evaluation requested from prior study. [facility] is made [facility] There are scattered fibroglandular elements in right breast. There is 0.8 cm oval low density focal asymmetry with a circumscribed margin in the right breast at 12 o'clock middle depth. No other significant masses or calcifications are seen in the breast. IMPRESSION: INCOMPLETE: NEEDS ADDITIONAL IMAGING EVALUATION The 0.8 cm oval low density focal asymmetry in the right breast is indeterminate. An ultrasound is recommended. This exam was interpreted at Station ID: [id number]. NOTE: For mammograms, a report in lay terms will be sent to the patient. Approximately 15% of breast malignancies will not be visualized mammographically. In the management of a palpable breast mass, a negative mammogram must not discourage biopsy of a clinically suspicious lesion. Electronically Signed By: Ryan vasquez/nery:11/17/2018 10:13:21 letter sent: Need Ultrasound ACR BI-RADS Category 0: Incomplete 3340F
--- NOTE | 2018-11-17 09:32 | DI.US.S_ITS ---
LIMITED ULTRASOUND OF RIGHT BREAST: 11/17/2018 CLINICAL: Additional evaluation requested from prior study. Comparison is made to exams dated: 11/17/2018 mammogram and 11/03/2018 mammogram - [facility]. Color flow and real-time ultrasound of the right breast 12 o'clock region were performed on the areas of interest. There is a benign 0.8 cm x 0.3 cm x 0.5 cm oval cyst with a smooth internal wall in the right breast at 12 o'clock middle depth. This oval cyst is anechoic with a well-defined boundary and posterior acoustic enhancement. This correlates with mammography findings. Color flow imaging demonstrates that there is no vascularity present. IMPRESSION: BENIGN There is no sonographic evidence of malignancy. The 0.8 cm x 0.3 cm x 0.5 cm oval cyst in the right breast is benign. Return to annual mammogram screening schedule is recommended. This exam was interpreted at Station ID: [id number]. Electronically Signed By: Ryan vasquez/nery:11/17/2018 10:43:11 letter sent: Normal Exam Ultrasound BI-RADS: 2 Benign
== END ==
PROVIDERS: Visit Provider Obstetrics & Gynecology
DX: R92.8 Other abnormal and inconclusive findings on diagnostic imaging of breast (principal); N60.01 Solitary cyst of right breast
CPT/HCPCS: 76642; 77065; G0279

== ENCOUNTER → 2019-01-20 09:15 | Outpatient (CLI) | payer OTHER, SELFPAY ==
--- NOTE | 2019-01-20 09:18 | DI.RAD.S_ITS ---
PROCEDURE: XR HIP W PEL IF DONE LT 2V INDICATIONS: left hip pain TECHNIQUE: 3 views of the hip were acquired. COMPARISON: None. FINDINGS: Bones: No fractures or dislocations. No suspicious bony lesions. The visualized pelvic ring appears intact. Soft tissues: No suspicious soft tissue calcifications or masses. IMPRESSION: Negative left hip radiographic series. If there is persistent clinical concern for source of hip pain, further evaluation with MRI can be considered to evaluate the surrounding soft tissue structures such as the labrum. Dictated by: Nahid Johnson M.D. on 01/20/2019 at 17:50 Approved by: Nahid Johnson M.D. on 01/20/2019 at 17:52
[2019-01-20 11:08] LABS: Cholesterol 244 mg/dL (140-199); Glucose 89 mg/dL (70-100); HDL Cholesterol 73 mg/dL (40-60); LDL Cholesterol Calculated 150 mg/dL (<100); Triglycerides 103 mg/dL (35-150)
== END ==
PROVIDERS: PCP Family Medicine; Visit Provider Family Medicine
DX: M25.552 Pain in left hip (principal); E66.9 Obesity, unspecified
CPT/HCPCS: 36415; 73502; 80061; 82947

== ENCOUNTER → 2019-08-12 08:17 | Outpatient (CLI) | payer OTHER, SELFPAY ==
[2019-08-12 09:21] LABS: Add Manual Diff / Slide Review NO; Basophils Absolute Auto 0 /uL (0-100); Basophils Percent Auto 0.9 % (0-2); Eosinophils Absolute Auto 100 /uL (0-450); Eosinophils Percent Auto 2.1 % (2-4); Hematocrit 40.1 % (36-46); Hemoglobin 13.8 g/dL (12.0-16.0); Lymphocytes Absolute Auto 1300 /uL (1100-4500); Lymphocytes Percent Auto 36.1 % (25-40); Mean Corpuscular HGB Conc 34.4 % (30-36); Mean Corpuscular Hemoglobin 30.1 PG (26-34); Mean Corpuscular Volume 87.5 fL (80-100); Monocytes Absolute Auto 300 /uL (0-900); Monocytes Percent Auto 8.3 % (3-14); Neutrophils Absolute Auto 1900 /uL (1500-7000); Neutrophils Percent Auto 52.6 % (50-75); Platelet Count 191 X10^3/uL (150-400); Red Blood Cell Count 4.58 X10^6/uL (4.0-5.2); Red Cell Distribution Width 13.6 % (11.6-14.8); White Blood Cell Count 3.7 X10^3/uL (4.5-11.0)
[2019-08-12 09:54] LABS: HEMOLYSIS < 15 (0-50); Iron 90 ug/dL (37-170)
[2019-08-12 09:57] LABS: Alanine Aminotransferase 20 IU/L (<35); Albumin 4.2 g/dL (3.5-5.0); Albumin Globulin Ratio 1.4 (1.0-2.8); Alkaline Phosphatase 90 U/L (38-126); Aspartate Aminotransferase 27 IU/L (14-36); BUN Creatinine Ratio 15.7 (6-22); Bilirubin Total 1.4 mg/dL (0.2-1.3); Blood Urea Nitrogen 11 mg/dL (7-17); Calcium 9.6 mg/dL (8.4-10.2); Carbon Dioxide 28 mmol/L (22-32); Chloride 104 mmol/L (98-107); Cholesterol 253 mg/dL (140-199); Estimated Glomerular Filt Rate > 60.0 mL/min (>60); Globulin 2.9 g/dL (1.7-4.1); Glucose 96 mg/dL (70-100); HDL Cholesterol 70 mg/dL (40-60); HEMOLYSIS < 15 (0-50); LDL Cholesterol Calculated 162 mg/dL (<100); Magnesium 2.1 mg/dL (1.6-2.3); Potassium 4.2 mmol/L (3.4-5.1); Sodium 140 mmol/L (137-145); Total Protein 7.1 g/dL (6.3-8.2); Triglycerides 105 mg/dL (35-150)
[2019-08-12 10:00] LABS: Rheumatoid Factor < 8.6 IU/mL (<12.0)
[2019-08-12 10:05] LABS: Percent Iron Saturation 25 % (15-50); Total Iron Binding Capacity 364 ug/dL (265-497); Transferrin 309 mg/dL (206-381)
[2019-08-12 10:13] LABS: Vitamin D 25 Hydroxy (D3) 28.2 ng/mL (30.0-100.0)
[2019-08-12 10:45] LABS: Vitamin B12 724 pg/mL (239-931)
[2019-08-15 12:17] LABS: CCP Antibody (IgG) < 16 Units (< 20)
== END ==
PROVIDERS: PCP Family Medicine; Visit Provider Family Medicine
DX: M25.50 Pain in unspecified joint (principal); Z13.220 Encounter for screening for lipoid disorders; Z98.84 Bariatric surgery status
CPT/HCPCS: 36415; 80053; 80061; 82306; 82607; 83540; 83550; 83735; 85025; 86200; 86430

== ENCOUNTER → 2019-09-07 12:21 | Outpatient (CLI) | payer OTHER, SELFPAY ==
[2019-09-07 15:16] LABS: Alanine Aminotransferase 16 IU/L (<35); Albumin 4.1 g/dL (3.5-5.0); Albumin Globulin Ratio 1.3 (1.0-2.8); Alkaline Phosphatase 80 U/L (38-126); Aspartate Aminotransferase 25 IU/L (14-36); Blood Urea Nitrogen 12 mg/dL (7-17); Calcium 9.2 mg/dL (8.4-10.2); Carbon Dioxide 24 mmol/L (22-32); Chloride 106 mmol/L (98-107); Estimated Glomerular Filt Rate > 60.0 mL/min (>60); Globulin 3.1 g/dL (1.7-4.1); Glucose 88 mg/dL (70-100); HEMOLYSIS < 15 (0-50); Potassium 3.9 mmol/L (3.4-5.1); Sodium 138 mmol/L (137-145); Total Protein 7.2 g/dL (6.3-8.2)
== END ==
PROVIDERS: PCP Family Medicine; Visit Provider Family Medicine
DX: K52.9 Noninfective gastroenteritis and colitis, unspecified (principal)
CPT/HCPCS: 36415; 80053; 83516; 84443

== ENCOUNTER → 2019-09-10 11:35 | Outpatient (CLI) | payer OTHER, SELFPAY ==
[2019-09-10 12:52] LABS: Clostridium Difficile Tox PCR Negative for C. diff
[2019-09-17 13:50] LABS: Calprotectin, Stool < 15.6 mcg/g
== END ==
PROVIDERS: PCP Family Medicine; Visit Provider Family Medicine
DX: K52.9 Noninfective gastroenteritis and colitis, unspecified (principal)
CPT/HCPCS: 83993; 87493

== ENCOUNTER → 2019-10-11 12:03 | Outpatient (CLI) | payer OTHER, SELFPAY | PROVIDERS: PCP Family Medicine; Visit Provider Physician Assistant | DX: R07.0 Pain in throat (principal) | CPT/HCPCS: 87070 ==

== ENCOUNTER → 2019-10-29 18:45 | Outpatient (CLI) | payer OTHER, SELFPAY | PROVIDERS: PCP Family Medicine; Visit Provider Physician Assistant | DX: R30.0 Dysuria (principal) | CPT/HCPCS: 87086 ==

== ENCOUNTER → 2020-01-15 14:38 | Outpatient (CLI) | payer OTHER, SELFPAY ==
--- NOTE | 2020-01-15 14:41 | DI.RAD.S_ITS ---
PROCEDURE: XR FOOT RT MIN 3V INDICATIONS: right foot pain, severe TECHNIQUE: 3 views of the foot were acquired. COMPARISON: None. FINDINGS: Bones: No fractures or dislocations. No suspicious bony lesions. Diffuse hindfoot spurring and sclerosis. Plantar calcaneal spur. Severe first tarsometatarsal joint degeneration. Incidental os peroneum. Soft tissues: No tibiotalar joint effusion. Achilles tendon appears normal. IMPRESSION: Chronic degenerative changes as above If the patient's pain or other symptoms persist, consider further evaluation with MRI Dictated by: Vincent Truong M.D. on 01/15/2020 at 16:11 Approved by: Vincent Truong M.D. on 01/15/2020 at 16:13
== END ==
PROVIDERS: PCP Family Medicine; Referring Provider Family Medicine; Visit Provider Family Medicine
DX: M79.671 Pain in right foot (principal); M77.31 Calcaneal spur, right foot
CPT/HCPCS: 73630

== ENCOUNTER → 2020-03-04 06:37 | Outpatient (CLI) | payer OTHER, SELFPAY ==
--- NOTE | 2020-03-04 08:41 | DI.CT.S_ITS ---
PROCEDURE: CT ABDOMEN W CON INDICATIONS: H/O GASTRIC SLEEVE, LUQ ABDOMINAL PAIN AND NAUSEA TECHNIQUE: After the administration of oral and intravenous contrast, 5 mm thick sections acquired from the diaphragms to the iliac crests. 5 mm thick coronal and sagittal reformats were acquired. For radiation dose reduction, the following was used: automated exposure control, adjustment of mA and/or kV according to patient size. COMPARISON: , CT, CT ABDOMEN PELVIS W CON, 09/17/2018, 19:38. FINDINGS: Image quality: Excellent. Lung bases: Lung bases are clear. Heart size is normal. Solid organs: Liver is normal in size and enhancement. Gallbladder is surgically absent. Biliary system is non dilated. Pancreas enhances normally. Spleen is normal in size and enhancement. No adrenal nodules. Kidneys are normal in size, without hydronephrosis. Peritoneum and bowel: Small hiatal hernia. Gastric sleeve along the greater curvature. Enteric contrast within the stomach. No leak. No perigastric fluid collection. No small bowel obstruction. Probable curvilinear suture material in the right lower quadrant. Nodes and vessels: No retroperitoneal or mesenteric adenopathy by size criteria. Aorta and inferior vena cava are normal in size. Bones: No suspicious bony lesions. No vertebral body compression fractures. Miscellaneous: Midline ventral scar. Mild diastases. IMPRESSION: 1. No acute inflammatory process. No free fluid. No gastric leak. Gastric sleeve. 2. No bowel obstruction. 3. Small hiatal hernia. Dictated by: Mason Bueno M.D. on 03/04/2020 at 9:00 Approved by: Mason Bueno M.D. on 03/04/2020 at 9:06
== END ==
PROVIDERS: PCP Family Medicine; Referring Provider Family Medicine; Visit Provider Family Medicine
DX: R10.12 Left upper quadrant pain (principal); R11.0 Nausea; K44.9 Diaphragmatic hernia without obstruction or gangrene; Z90.49 Acquired absence of other specified parts of digestive tract; Z98.84 Bariatric surgery status
CPT/HCPCS: 74160; Q9967

== ENCOUNTER → 2020-03-25 11:49 | Outpatient (CLI) | payer OTHER, SELFPAY ==
--- NOTE | 2020-03-25 11:50 | DI.MG.S_ITS ---
BILATERAL DIGITAL SCREENING MAMMOGRAM 3D/2D WITH CAD: 03/25/2020 CLINICAL: Routine screening. Comparison is made to exams dated: 11/17/2018 mammogram and 11/03/2018 mammogram - [facility]. The tissue of both breasts is predominantly fatty. Current study was also evaluated with a Computer Aided Detection (CAD) system. No significant masses, calcifications, or other findings are seen in either breast. There has been no significant interval change. IMPRESSION: NEGATIVE There is no mammographic evidence of malignancy. A 1 year screening mammogram is recommended. This exam was interpreted at Station ID: [id number]. NOTE: For mammograms, a report in lay terms will be sent to the patient. Approximately 15% of breast malignancies will not be visualized mammographically. In the management of a palpable breast mass, a negative mammogram must not discourage biopsy of a clinically suspicious lesion. Electronically Signed By: Carlee acuña/nery:03/25/2020 13:20:19 letter sent: Normal Exam ACR BI-RADS Category 1: Negative [id number]
== END ==
PROVIDERS: PCP Family Medicine; Referring Provider Family Medicine; Visit Provider Family Medicine
DX: Z12.31 Encounter for screening mammogram for malignant neoplasm of breast (principal)
CPT/HCPCS: 77063; 77067

== ENCOUNTER → 2020-06-28 17:00 | Outpatient (CLI) | payer OTHER, SELFPAY ==
[2020-07-08 15:32] LABS: Urea Breath Test >18YRS Negative
== END ==
PROVIDERS: PCP Family Medicine; Referring Provider Family Medicine; Visit Provider Family Medicine
DX: R10.9 Unspecified abdominal pain (principal); R19.7 Diarrhea, unspecified
CPT/HCPCS: 83013

== ENCOUNTER → 2020-07-25 09:35 | Outpatient (CLI) | payer OTHER, SELFPAY ==
[2020-07-25 10:31] LABS: Add Manual Diff / Slide Review NO; Basophils Absolute Auto 0 /uL (0-100); Basophils Percent Auto 0.7 % (0-2); Eosinophils Absolute Auto 100 /uL (0-450); Eosinophils Percent Auto 1.7 % (2-4); Hematocrit 41.3 % (36-46); Lymphocytes Absolute Auto 1700 /uL (1100-4500); Lymphocytes Percent Auto 40.4 % (25-40); Mean Corpuscular HGB Conc 33.8 % (30-36); Mean Corpuscular Hemoglobin 29.4 PG (26-34); Mean Corpuscular Volume 86.9 fL (80-100); Monocytes Absolute Auto 300 /uL (0-900); Monocytes Percent Auto 7.7 % (3-14); Neutrophils Absolute Auto 2000 /uL (1500-7000); Neutrophils Percent Auto 49.5 % (50-75); Platelet Count 189 X10^3/uL (150-400); Red Blood Cell Count 4.75 X10^6/uL (4.0-5.2); Red Cell Distribution Width 13.7 % (11.6-14.8); White Blood Cell Count 4.1 X10^3/uL (4.5-11.0)
[2020-07-25 10:54] LABS: Alanine Aminotransferase 18 IU/L (<35); Albumin 4.2 g/dL (3.5-5.0); Albumin Globulin Ratio 1.3 (1.0-2.8); Alkaline Phosphatase 98 U/L (38-126); Aspartate Aminotransferase 23 IU/L (14-36); BUN Creatinine Ratio 15.5 (6-22); Bilirubin Total 0.9 mg/dL (0.2-1.3); Blood Urea Nitrogen 9 mg/dL (7-17); Calcium 9.5 mg/dL (8.4-10.2); Carbon Dioxide 29 mmol/L (22-32); Chloride 106 mmol/L (98-107); Cholesterol 247 mg/dL (140-199); Estimated Glomerular Filt Rate > 60.0 mL/min (>60); Globulin 3.3 g/dL (1.7-4.1); Glucose 102 mg/dL (70-100); HDL Cholesterol 53 mg/dL (40-60); HEMOLYSIS < 15 (0-50); LDL Cholesterol Calculated 159 mg/dL (<100); Potassium 4.2 mmol/L (3.4-5.1); Sodium 139 mmol/L (137-145); Total Protein 7.5 g/dL (6.3-8.2); Triglycerides 177 mg/dL (35-150)
[2020-07-25 12:05] LABS: RBC Urine None Seen (0-5/HPF); WBC Urine None Seen (0-5/HPF)
[2020-07-25 12:30] LABS: Appearance Urine UA CLEAR; Bilirubin Urine UA NEGATIVE (NEGATIVE); Color Urine UA YELLOW; Glucose Urine UA NEGATIVE (Negative); Ketones Urine UA NEGATIVE (NEGATIVE); Leukocyte Esterase Urine UA NEGATIVE (NEGATIVE); Nitrite Urine UA NEGATIVE (Negative); Occult Blood Urine UA NEGATIVE (Negative); Protein Urine UA NEGATIVE (Negative); Specific Gravity Urine UA 1.015 (1.000-1.035); Urobilinogen Urine UA 0.2 E.U./dL (0.2)
[2020-07-25 12:31] LABS: pH Urine UA 6.5 (4.5-8.0)
[2020-07-25 12:45] LABS: Squamous Epithelial Cell Urine 1-5 /HPF (0-5/HPF)
[2020-07-25 12:46] LABS: Bacteria Urine Few (2-10); Culture Indicated Urine Cult Not Indicated; Mucus Urine 3+ (Negative)
[2020-07-25 15:16] LABS: TSH w/ Reflex to FT4 1.07 uIU/mL (0.47-4.68)
[2020-07-25 15:36] LABS: Creatinine Urine Random 236.7 mg/dL
[2020-07-25 15:37] LABS: Microalbumi Creatinin Ratio Ur 5.4 ug/mg CR (<30); Microalbumin Urine Random 1.3 mg/dL (0-1.6)
== END ==
PROVIDERS: PCP Family Medicine; Referring Provider Family Medicine; Visit Provider Family Medicine
DX: I10 Essential (primary) hypertension (principal)
CPT/HCPCS: 36415; 80053; 80061; 81001; 82043; 82570; 84443; 85025

== ENCOUNTER → 2020-11-28 11:00 | Outpatient (CLI) | payer OTHER, SELFPAY ==
[2020-11-28] MEDS: COVID-19 VACC, Ad26(JANSSEN)/PF 0.5 ML IM (11:07)
== END ==
PROVIDERS: PCP Family Medicine; Visit Provider Internal Medicine
DX: Z23 Encounter for immunization (principal)
CPT/HCPCS: 0031A; 91303

== ENCOUNTER → 2021-06-05 08:19 | Outpatient (CLI) | payer OTHER, SELFPAY ==
[2021-06-05 09:15] LABS: COVID19 -Nasal RAPID Negative (Negative)
== END ==
PROVIDERS: PCP Family Medicine; Visit Provider Nurse Practitioner Family
DX: R35.0 Frequency of micturition (principal); R11.0 Nausea
CPT/HCPCS: 87086; 87635

== ENCOUNTER → 2021-07-03 09:31 | Outpatient (CLI) | payer OTHER, SELFPAY ==
--- NOTE | 2021-07-03 09:32 | DI.MRI.S_ITS ---
PROCEDURE: MR BRAIN (IAC) WWO CON INDICATIONS: trouble finding words TECHNIQUE: Noncontrast sagittal T1 spin echo, axial FLAIR, axial gradient echo, axial diffusion and ADC through the brain. Axial thin-slice 3D CISS, coronal TruFISP, axial T1 spin echo with fat saturation through the internal auditory canals. After the administration of contrast, thin slice axial and coronal T1 spin echo with fat saturation through the internal auditory canals, and axial T1 spin echo with fat saturation through the brain. COMPARISON: None. FINDINGS: Image quality: Excellent. Cerebellopontine angles: No cerebellopontine angle masses. Inner ear structures appear normally formed. No suspicious enhancement in the internal auditory canal or along the course of the 7th cranial nerve. CSF spaces: Ventricles are normal in size and shape. No extra-axial fluid collections. Basal cisterns are patent. Brain: No intracranial bleeds or mass effects. Miguel-white matter interface is intact. No abnormal intracranial enhancement. Diffusion weighted images demonstrate no acute ischemic insults. Brainstem appears normal. Normal intravascular flow voids are present. Skull and face: Calvarial marrow signal is normal. Orbits appear normal. Sinuses: Sinuses and mastoids are clear. IMPRESSION: No imaging explanation is found for this patient's presenting symptoms. No masses or abnormal enhancement are seen within the cerebellopontine angle cisterns or within the internal auditory canals. Dictated by: Thom Collins M.D. on 07/03/2021 at 10:05 Approved by: Thom Collins M.D. on 07/03/2021 at 10:07
== END ==
PROVIDERS: PCP Family Medicine; Referring Provider Family Medicine; Visit Provider Family Medicine
DX: R47.89 Other speech disturbances (principal)
CPT/HCPCS: 70553

== ENCOUNTER → 2021-07-25 09:39 | Outpatient (CLI) | payer BC, SELFPAY ==
[2021-07-25 10:20] LABS: COVID19 -Nasal RAPID Negative (Negative)
== END ==
PROVIDERS: PCP Family Medicine; Visit Provider Physician Assistant
DX: Z20.822 Contact with and (suspected) exposure to COVID-19 (principal); R05.9 Cough, unspecified; R09.81 Nasal congestion; R51.9 Headache, unspecified
CPT/HCPCS: 87635

== ENCOUNTER → 2021-07-26 16:36 | Outpatient (CLI) | payer BC, SELFPAY ==
--- NOTE | 2021-07-26 16:37 | DI.MG.S_ITS ---
BILATERAL DIGITAL SCREENING MAMMOGRAM 3D/2D WITH CAD: 07/26/2021 CLINICAL: Routine screening. Comparison is made to exams dated: 07/27/2020 mammogram - [facility], 03/25/2020 mammogram, 11/17/2018 mammogram, and 11/03/2018 mammogram - [facility]. The tissue of both breasts is predominantly fatty. Current study was also evaluated with a Computer Aided Detection (CAD) system. No significant masses, calcifications, or other findings are seen in either breast. There has been no significant interval change. IMPRESSION: NEGATIVE There is no mammographic evidence of malignancy. A 1 year screening mammogram is recommended. This exam was interpreted at Station ID: [id number]. NOTE: For mammograms, a report in lay terms will be sent to the patient. Approximately 15% of breast malignancies will not be visualized mammographically. In the management of a palpable breast mass, a negative mammogram must not discourage biopsy of a clinically suspicious lesion. Electronically Signed By: Isaac Esquivel acr/jiarad:07/26/2021 17:55:00 letter sent: Normal Exam ACR BI-RADS Category 1: Negative [id number]
== END ==
PROVIDERS: PCP Family Medicine; Referring Provider Family Medicine; Visit Provider Family Medicine
DX: Z12.31 Encounter for screening mammogram for malignant neoplasm of breast (principal)
CPT/HCPCS: 77063; 77067

== ENCOUNTER → 2021-12-13 08:24 | Outpatient (CLI) | payer BC, SELFPAY ==
[2021-12-13 09:12] LABS: Add Manual Diff / Slide Review NO; Basophils Absolute Auto 0 /uL (0-100); Basophils Percent Auto 0.7 % (0-2); Eosinophils Absolute Auto 100 /uL (0-450); Eosinophils Percent Auto 1.6 % (2-4); Hematocrit 39.5 % (36-46); Lymphocytes Absolute Auto 1500 /uL (1100-4500); Lymphocytes Percent Auto 43.9 % (25-40); Mean Corpuscular Hemoglobin 28.5 PG (26-34); Mean Corpuscular Volume 86.4 fL (80-100); Monocytes Absolute Auto 300 /uL (0-900); Monocytes Percent Auto 9.4 % (3-14); Neutrophils Absolute Auto 1600 /uL (1500-7000); Neutrophils Percent Auto 44.4 % (50-75); Platelet Count 199 X10^3/uL (150-400); Red Blood Cell Count 4.57 X10^6/uL (4.0-5.2); Red Cell Distribution Width 13.6 % (11.6-14.8); White Blood Cell Count 3.5 X10^3/uL (4.5-11.0)
[2021-12-13 09:31] LABS: Hemoglobin A1C% w Est Avg Glu 5.6 % (4.0-6.0)
[2021-12-13 09:42] LABS: HEMOLYSIS 21 (0-50); Iron 87 ug/dL (37-170)
[2021-12-13 09:53] LABS: Alanine Aminotransferase 44 IU/L (<35); Albumin 4.1 g/dL (3.5-5.0); Albumin Globulin Ratio 1.3 (1.0-2.8); Alkaline Phosphatase 76 U/L (38-126); Aspartate Aminotransferase 38 IU/L (14-36); BUN Creatinine Ratio 14.1 (6-22); Bilirubin Total 1.1 mg/dL (0.2-1.3); Blood Urea Nitrogen 10 mg/dL (7-17); Calcium 9.4 mg/dL (8.4-10.2); Carbon Dioxide 27 mmol/L (22-32); Chloride 106 mmol/L (98-107); Cholesterol 287 mg/dL (140-199); Estimated Glomerular Filt Rate > 60.0 mL/min (>60); Globulin 3.2 g/dL (1.7-4.1); Glucose 95 mg/dL (70-100); HDL Cholesterol 59 mg/dL (40-60); HEMOLYSIS < 15 (0-50); LDL Cholesterol Calculated 195 mg/dL (<100); Potassium 3.7 mmol/L (3.4-5.1); Sodium 139 mmol/L (137-145); Total Protein 7.3 g/dL (6.3-8.2); Triglycerides 163 mg/dL (35-150)
[2021-12-13 09:56] LABS: Percent Iron Saturation 22 % (15-50); Total Iron Binding Capacity 393 ug/dL (265-497); Transferrin 311 mg/dL (206-381)
[2021-12-13 10:14] LABS: Thyroid Stimulating Hormone 1.41 uIU/mL (0.47-4.68)
[2021-12-13 10:38] LABS: Vitamin B12 679 pg/mL (239-931)
[2021-12-13 20:50] LABS: Vitamin D 25 Hydroxy (D3) 32.4 ng/mL (30.0-100.0)
== END ==
PROVIDERS: PCP Family Medicine; Referring Provider Family Medicine; Visit Provider Family Medicine
DX: Z98.84 Bariatric surgery status (principal)
CPT/HCPCS: 36415; 80053; 80061; 82306; 82607; 83036; 83540; 83550; 84443; 85025

== ENCOUNTER → 2022-04-26 12:58 | Outpatient (CLI) | payer BC, SELFPAY ==
[2022-04-26 14:08] LABS: Hematocrit 37.7 % (36-46); Hemoglobin 12.9 g/dL (12.0-16.0); Mean Corpuscular HGB Conc 34.2 % (30-36); Mean Corpuscular Hemoglobin 28.7 PG (26-34); Mean Corpuscular Volume 83.9 fL (80-100); Platelet Count 178 X10^3/uL (150-400); Red Blood Cell Count 4.49 X10^6/uL (4.0-5.2); Red Cell Distribution Width 13.3 % (11.6-14.8); White Blood Cell Count 3.6 X10^3/uL (4.5-11.0)
[2022-04-26 14:50] LABS: Erythrocyte Sedimentation Rate 21 MM/HR (0-20)
[2022-04-26 14:54] LABS: Neutrophils Absolute Manual 1224 /uL (3000-5900); Total Cells Counted 100
[2022-04-26 14:55] LABS: RBC Morphology Normal Morphology
[2022-04-26 15:13] LABS: Alanine Aminotransferase 75 IU/L (<35); Albumin 4.3 g/dL (3.5-5.0); Albumin Globulin Ratio 1.4 (1.0-2.8); Alkaline Phosphatase 86 U/L (38-126); Aspartate Aminotransferase 64 IU/L (14-36); Bilirubin Total 1.5 mg/dL (0.2-1.3); Bilirubin Unconjugated 1.3 mg/dL (0.0-1.1); C-Reactive Protein Quant < 0.5 mg/dL (<1.0); Cholesterol 160 mg/dL (140-199); Globulin 3.1 g/dL (1.7-4.1); HDL Cholesterol 62 mg/dL (40-60); HEMOLYSIS < 15 (0-50); LDL Cholesterol Calculated 76 mg/dL (<100); Total Protein 7.4 g/dL (6.3-8.2); Triglycerides 109 mg/dL (35-150)
[2022-04-26 21:51] LABS: Hepatitis B Surface Antigen NEGATIVE s/c (NEGATIVE)
[2022-04-26 21:53] LABS: Hep C Virus Ab w/Reflex Quant NEGATIVE s/c (NEGATIVE)
[2022-04-27 07:24] LABS: Hepatitis A Antibody IgM Negative (Negative)
[2022-04-27 07:24] LABS: Hepatitis B Surf AB Quant <3.1 mIU/mL (Immunity>9.9)
[2022-04-30 06:08] LABS: Lupus Reflex Interpretation Comment: (.); PTT-LA 33.6 sec (0.0-51.9)
== END ==
PROVIDERS: PCP Family Medicine; Referring Provider Family Medicine; Visit Provider Family Medicine
DX: R74.8 Abnormal levels of other serum enzymes (principal); E78.5 Hyperlipidemia, unspecified; D72.819 Decreased white blood cell count, unspecified; G89.29 Other chronic pain; M25.50 Pain in unspecified joint
CPT/HCPCS: 36415; 80061; 80076; 85025; 85598; 85613; 85651; 86140; 86706; 86709; 86803; 87340

== ENCOUNTER → 2022-05-23 08:18 | Outpatient (CLI) | payer BC, SELFPAY ==
[2022-05-25 14:06] LABS: ANA Screen, IFA Negative (.)
== END ==
PROVIDERS: PCP Family Medicine; Referring Provider Family Medicine; Visit Provider Family Medicine
DX: D72.819 Decreased white blood cell count, unspecified (principal); G89.29 Other chronic pain; M79.7 Fibromyalgia
CPT/HCPCS: 36415; 86038

== ENCOUNTER → 2022-06-13 08:51 | Outpatient (CLI) | payer BC, SELFPAY ==
--- NOTE | 2022-06-13 08:53 | DI.RAD.S_ITS ---
PROCEDURE: XR HIP W PEL IF DONE CHRIS MIN 4V INDICATIONS: Pain TECHNIQUE: AP pelvis with lateral view(s) of the bilateral hip(s). COMPARISON: None. FINDINGS: Bones: No degenerative changes. No TREVOR morphology. No fractures or dislocations. Pelvic ring appears intact. No suspicious bony lesions. Soft tissues: The visualized bowel gas pattern is normal. No suspicious soft tissue calcifications. IMPRESSION: No acute finding or other significant abnormality. Dictated by: Gerry Aguilar M.D. on 06/13/2022 at 11:58 Approved by: Gerry Aguilar M.D. on 06/13/2022 at 11:58
--- NOTE | 2022-06-13 08:53 | DI.RAD.S_ITS ---
PROCEDURE: XR FOOT LT MIN 3V INDICATIONS: Pain TECHNIQUE: 3 views of the foot were acquired. COMPARISON: None. FINDINGS: Bones: No acute fractures or dislocations. No suspicious bony lesions. Small posterior and moderate plantar calcaneal enthesophytes. Soft tissues: No suspicious soft tissue calcification. IMPRESSION: No acute osseous abnormality. If the symptoms persist, consider cross sectional imaging such as MRI or CT for further assessment. Dictated by: Kelton Morgan M.D. on 06/13/2022 at 12:18 Approved by: Kelton Morgan M.D. on 06/13/2022 at 12:20
--- NOTE | 2022-06-13 08:53 | DI.RAD.S_ITS ---
PROCEDURE: XR KNEE LT 3V INDICATIONS: Pain TECHNIQUE: 3 views of the knee were acquired. COMPARISON: None. FINDINGS: Bones: No fractures or dislocations. Minimal medial joint space narrowing. No suspicious bony lesions. Degenerative changes of the right knee are minimal. Soft tissues: No joint effusion. No suspicious soft tissue calcifications. IMPRESSION: Mild degenerative changes of the right knee with minimal medial joint space narrowing. Dictated by: Isaac Esquivel M.D. on 06/13/2022 at 10:41 Approved by: Isaac Esquivel M.D. on 06/13/2022 at 10:43
--- NOTE | 2022-06-13 08:53 | DI.RAD.S_ITS ---
PROCEDURE: XR KNEE RT 3V INDICATIONS: Pain TECHNIQUE: 3 views of the knee were acquired. COMPARISON: None. FINDINGS: Bones: No fractures or dislocations. No suspicious bony lesions. Degenerative changes are minimal. There is minimal medial joint space narrowing. Soft tissues: No joint effusion. No suspicious soft tissue calcifications. IMPRESSION: Minimal degenerative changes and minimal medial joint space narrowing. Dictated by: Isaac Esquivel M.D. on 06/13/2022 at 10:43 Approved by: Isaac Esquivel M.D. on 06/13/2022 at 10:43
--- NOTE | 2022-06-13 08:53 | DI.RAD.S_ITS ---
PROCEDURE: XR FOOT RT MIN 3V INDICATIONS: Pain TECHNIQUE: 3 views of the foot were acquired. COMPARISON: [facility], CR, XR FOOT RT MIN 3V, 01/15/2020, 14:39. FINDINGS: Bones: No acute fractures or dislocations. No suspicious bony lesions. Severe degenerative changes are again seen at the 1st tarsometatarsal joint with joint space narrowing, subchondral sclerosis, and marginal osteophyte formation. Findings do not appear significantly changed when compared to the radiographs from 01/15/2020. Moderate degenerative changes are seen at the 2nd tarsometatarsal joint. Moderate plantar calcaneal enthesophyte. Soft tissues: No suspicious soft tissue calcification. IMPRESSION: Severe 1st tarsometatarsal joint osteoarthrosis and moderate degenerative changes of the 2nd tarsometatarsal joint. Dictated by: Kelton Morgan M.D. on 06/13/2022 at 12:20 Approved by: Kelton Morgan M.D. on 06/13/2022 at 12:21
== END ==
PROVIDERS: PCP Family Medicine; Referring Provider Family Medicine; Visit Provider Family Medicine
DX: M19.071 Primary osteoarthritis, right ankle and foot (principal); M77.31 Calcaneal spur, right foot; M77.32 Calcaneal spur, left foot; M25.561 Pain in right knee; M25.562 Pain in left knee; M25.551 Pain in right hip; M25.552 Pain in left hip; M79.671 Pain in right foot; M79.672 Pain in left foot
CPT/HCPCS: 73522; 73562; 73630

== ENCOUNTER → 2022-08-20 08:23 | Outpatient (CLI) | payer BC, SELFPAY ==
--- NOTE | 2022-08-20 08:26 | DI.MG.S_ITS ---
BILATERAL DIGITAL SCREENING MAMMOGRAM 3D/2D WITH CAD: 08/20/2022 CLINICAL: Routine screening. Comparison is made to exams dated: 07/26/2021 mammogram, 03/25/2020 mammogram - [facility], 07/27/2020 mammogram - [facility], and 11/03/2018 mammogram - [facility]. Both breasts are almost entirely fatty (category a/<25% glandular tissue). Current study was also evaluated with a Computer Aided Detection (CAD) system. No significant masses, calcifications, or other findings are seen in either breast. There has been no significant interval change. IMPRESSION: NEGATIVE There is no mammographic evidence of malignancy. A 1 year screening mammogram is recommended. Based on the Tyrer Cuzick model (a risk assessment model) the patient's lifetime risk is 4.6% and her 10 year risk is 0.7%. According to the ACR, ACS, and NCCN guidelines, an annual breast MRI exam along with mammogram is recommended if the patient's lifetime risk is 20% or greater. This exam was interpreted at Station ID: [id number]. NOTE: For mammograms, a report in lay terms will be sent to the patient. Approximately 15% of breast malignancies will not be visualized mammographically. In the management of a palpable breast mass, a negative mammogram must not discourage biopsy of a clinically suspicious lesion. Electronically Signed By: Mason gibson/nery:08/20/2022 10:02:50 letter sent: Normal Exam ACR BI-RADS Category 1: Negative 3341F
== END ==
PROVIDERS: PCP Family Medicine; Referring Provider Family Medicine; Visit Provider Family Medicine
DX: Z12.31 Encounter for screening mammogram for malignant neoplasm of breast (principal)
CPT/HCPCS: 77063; 77067

== ENCOUNTER → 2022-10-05 10:07 | Outpatient (CLI) | payer BC, SELFPAY ==
[2022-10-05 11:16] LABS: Alanine Aminotransferase 35 IU/L (<35); Alkaline Phosphatase 88 U/L (38-126); Aspartate Aminotransferase 34 IU/L (14-36); BUN Creatinine Ratio 12.3 (6-22); Bilirubin Total 1.4 mg/dL (0.2-1.3); Blood Urea Nitrogen 7 mg/dL (7-17); Calcium 8.9 mg/dL (8.4-10.2); Carbon Dioxide 26 mmol/L (22-32); Chloride 103 mmol/L (98-107); Cholesterol 179 mg/dL (140-199); Estimated Glomerular Filt Rate > 60 mL/min (>60); Glucose 91 mg/dL (70-100); HDL Cholesterol 58 mg/dL (40-60); HEMOLYSIS < 15 (0-50); LDL Cholesterol Calculated 90 mg/dL (<100); Potassium 4.2 mmol/L (3.4-5.1); Sodium 137 mmol/L (137-145); Total Protein 6.6 g/dL (6.3-8.2); Triglycerides 155 mg/dL (35-150)
[2022-10-05 16:44] LABS: Albumin 3.6 g/dL (3.5-5.0); Albumin Globulin Ratio 1.2 (1.0-2.8)
== END ==
PROVIDERS: PCP Family Medicine; Referring Provider Family Medicine; Visit Provider Family Medicine
DX: E78.5 Hyperlipidemia, unspecified (principal)
CPT/HCPCS: 36415; 80053; 80061

== ENCOUNTER → 2023-04-17 08:08 | Outpatient (CLI) | payer BC, SELFPAY ==
[2023-04-17 08:27] LABS: Add Manual Diff / Slide Review NO; Basophils Absolute Auto 0 /uL (0-100); Basophils Percent Auto 1.4 % (0-2); Eosinophils Absolute Auto 100 /uL (0-450); Eosinophils Percent Auto 2.1 % (2-4); Hematocrit 39.3 % (36-46); Hemoglobin 13.4 g/dL (12.0-16.0); Lymphocytes Absolute Auto 1600 /uL (1100-4500); Lymphocytes Percent Auto 45.1 % (25-40); Mean Corpuscular HGB Conc 34.1 % (30-36); Mean Corpuscular Hemoglobin 29.4 PG (26-34); Mean Corpuscular Volume 86.2 fL (80-100); Monocytes Absolute Auto 400 /uL (0-900); Monocytes Percent Auto 10.3 % (3-14); Neutrophils Absolute Auto 1500 /uL (1500-7000); Neutrophils Percent Auto 41.1 % (50-75); Platelet Count 170 X10^3/uL (150-400); Red Blood Cell Count 4.56 X10^6/uL (4.0-5.2); Red Cell Distribution Width 13.7 % (11.6-14.8); White Blood Cell Count 3.5 X10^3/uL (4.5-11.0)
[2023-04-17 09:42] LABS: Alanine Aminotransferase 51 IU/L (<35); Albumin 3.9 g/dL (3.5-5.0); Albumin Globulin Ratio 1.4 (1.0-2.8); Alkaline Phosphatase 99 U/L (38-126); Aspartate Aminotransferase 48 IU/L (14-36); BUN Creatinine Ratio 13.3 (6-22); Bilirubin Total 1.5 mg/dL (0.2-1.3); Blood Urea Nitrogen 8 mg/dL (7-17); Calcium 8.9 mg/dL (8.4-10.2); Carbon Dioxide 25 mmol/L (22-32); Chloride 106 mmol/L (98-107); Cholesterol 201 mg/dL (140-199); Estimated Glomerular Filt Rate > 60 mL/min (>60); Globulin 2.8 g/dL (1.7-4.1); Glucose 109 mg/dL (70-100); HDL Cholesterol 71 mg/dL (40-60); HEMOLYSIS < 15 (0-50); LDL Cholesterol Calculated 95 mg/dL (<100); Potassium 3.9 mmol/L (3.4-5.1); Sodium 138 mmol/L (137-145); Total Protein 6.7 g/dL (6.3-8.2); Triglycerides 176 mg/dL (35-150)
[2023-04-17 10:31] LABS: Vitamin B12 391 pg/mL (239-931)
[2023-04-18 07:07] LABS: x Labcorp Estim. Avg Glu (eAG) 131 mg/dL (.); x Labcorp Hemoglobin A1c 6.2 % (4.8-5.6)
== END ==
PROVIDERS: PCP Family Medicine; Referring Provider Family Medicine; Visit Provider Family Medicine
DX: E78.5 Hyperlipidemia, unspecified (principal); K58.9 Irritable bowel syndrome, unspecified; Z98.84 Bariatric surgery status
CPT/HCPCS: 36415; 80053; 80061; 82306; 82607; 83036; 85025

== ENCOUNTER → 2023-09-14 08:08 | Outpatient (CLI) | payer BC, SELFPAY ==
--- NOTE | 2023-09-14 | DI.MG.S_ITS ---
BILATERAL DIGITAL SCREENING MAMMOGRAM 3D/2D WITH CAD: 09/14/2023 CLINICAL: Routine screening. Comparison is made to exams dated: 08/20/2022 mammogram, 07/26/2021 mammogram - [facility], 07/27/2020 mammogram - [facility], and 03/25/2020 mammogram - [facility]. Both breasts are almost entirely fatty (category a/<25% glandular tissue). Current study was also evaluated with a Computer Aided Detection (CAD) system. No significant masses, calcifications, or other findings are seen in either breast. There has been no significant interval change. IMPRESSION: NEGATIVE There is no mammographic evidence of malignancy. A 1 year screening mammogram is recommended. Based on the Tyrer Cuzick model (a risk assessment model) the patient's lifetime risk is 4.6% and her 10 year risk is 0.7%. According to the ACR, ACS, and NCCN guidelines, an annual breast MRI exam along with mammogram is recommended if the patient's lifetime risk is 20% or greater. This exam was interpreted at Station ID: [id number]. NOTE: For mammograms, a report in lay terms will be sent to the patient. Approximately 15% of breast malignancies will not be visualized mammographically. In the management of a palpable breast mass, a negative mammogram must not discourage biopsy of a clinically suspicious lesion. Electronically Signed By: Nahid castillo/nery:09/17/2023 07:30:58 letter sent: Normal Exam ACR BI-RADS Category 1: Negative [id number]
== END ==
LOC: MAMMO 08:10
PROVIDERS: PCP Family Medicine; Referring Provider Family Medicine; Visit Provider Family Medicine
DX: Z12.31 Encounter for screening mammogram for malignant neoplasm of breast (principal)
CPT/HCPCS: 77063; 77067

== ENCOUNTER → 2023-09-19 07:53 | Outpatient (CLI) | payer BC, SELFPAY ==
[2023-09-19 12:50] LABS: Hemoglobin A1C% w Est Avg Glu 5.8 % (4.0-6.0)
[2023-09-19 13:21] LABS: Alanine Aminotransferase 30 IU/L (<35); Albumin Globulin Ratio 1.5 (1.0-2.8); Alkaline Phosphatase 80 U/L (38-126); BUN Creatinine Ratio 12.7 (6-22); Bilirubin Total 1.4 mg/dL (0.2-1.3); Blood Urea Nitrogen 8 mg/dL (7-17); Calcium 9.8 mg/dL (8.4-10.2); Carbon Dioxide 27 mmol/L (22-32); Chloride 105 mmol/L (98-107); Cholesterol 156 mg/dL (140-199); Estimated Glomerular Filt Rate > 60 mL/min (>60); Globulin 2.7 g/dL (1.7-4.1); Glucose 103 mg/dL (70-100); HDL Cholesterol 65 mg/dL (40-60); HEMOLYSIS < 15 (0-50); LDL Cholesterol Calculated 65 mg/dL (<100); Potassium 4.4 mmol/L (3.4-5.1); Sodium 137 mmol/L (137-145); Total Protein 6.7 g/dL (6.3-8.2); Triglycerides 128 mg/dL (35-150)
[2023-09-20 15:11] LABS: Aspartate Aminotransferase 29 IU/L (14-36)
== END ==
PROVIDERS: PCP Family Medicine; Referring Provider Family Medicine; Visit Provider Family Medicine
DX: Z13.1 Encounter for screening for diabetes mellitus (principal); E78.5 Hyperlipidemia, unspecified; F41.9 Anxiety disorder, unspecified; F32.9 Major depressive disorder, single episode, unspecified; Z98.84 Bariatric surgery status
CPT/HCPCS: 36415; 80053; 80061; 83036

== ENCOUNTER → 2024-04-20 10:32 | Outpatient (CLI) | payer BC, SELFPAY ==
[2024-04-20 11:49] LABS: Add Manual Diff / Slide Review NO; Basophils Absolute Auto 100 /uL (0-100); Basophils Percent Auto 1.3 % (0-2); Eosinophils Absolute Auto 100 /uL (0-450); Eosinophils Percent Auto 1.4 % (2-4); Hematocrit 41.5 % (36-46); Hemoglobin 14.1 g/dL (12.0-16.0); Lymphocytes Absolute Auto 1900 /uL (1100-4500); Mean Corpuscular HGB Conc 33.9 % (30-36); Mean Corpuscular Hemoglobin 30.2 PG (26-34); Mean Corpuscular Volume 89.3 fL (80-100); Monocytes Absolute Auto 400 /uL (0-900); Monocytes Percent Auto 7.8 % (3-14); Neutrophils Absolute Auto 2500 /uL (1500-7000); Neutrophils Percent Auto 50.5 % (50-75); Platelet Count 203 X10^3/uL (150-400); Red Blood Cell Count 4.65 X10^6/uL (4.0-5.2); Red Cell Distribution Width 13.4 % (11.6-14.8)
[2024-04-20 11:53] LABS: Hemoglobin A1C% w Est Avg Glu 5.7 % (4.0-6.0)
[2024-04-20 12:34] LABS: Appearance Urine UA CLEAR; Bilirubin Urine UA NEGATIVE (NEGATIVE); Color Urine UA YELLOW; Glucose Urine UA NEGATIVE (Negative); Ketones Urine UA NEGATIVE (NEGATIVE); Leukocyte Esterase Urine UA NEGATIVE (NEGATIVE); Nitrite Urine UA NEGATIVE (Negative); Occult Blood Urine UA NEGATIVE (Negative); Protein Urine UA NEGATIVE (Negative)
[2024-04-20 12:48] LABS: Bacteria Urine Few (2-10); Culture Indicated Urine Cult Not Indicated; HEMOLYSIS < 15 (0-50); RBC Urine None Seen (0-5/HPF); Squamous Epithelial Cell Urine 1-5 /HPF (0-5/HPF); Urine Volume 10mL (spun); WBC Urine 0-1/HPF (0-5/HPF)
[2024-04-20 12:56] LABS: Alanine Aminotransferase 48 IU/L (<35); Albumin 4.1 g/dL (3.5-5.0); Albumin Globulin Ratio 1.4 (1.0-2.8); Alkaline Phosphatase 95 U/L (38-126); Aspartate Aminotransferase 37 IU/L (14-36); BUN Creatinine Ratio 10.9 (6-22); Bilirubin Total 1.9 mg/dL (0.2-1.3); Blood Urea Nitrogen 7 mg/dL (7-17); Calcium 9.3 mg/dL (8.4-10.2); Carbon Dioxide 29 mmol/L (22-32); Chloride 104 mmol/L (98-107); Cholesterol 196 mg/dL (140-199); Estimated Glomerular Filt Rate > 60 mL/min (>60); Glucose 93 mg/dL (70-100); HDL Cholesterol 79 mg/dL (40-60); LDL Cholesterol Calculated 81 mg/dL (<100); Potassium 3.8 mmol/L (3.4-5.1); Sodium 137 mmol/L (137-145); Total Protein 7.1 g/dL (6.3-8.2); Triglycerides 180 mg/dL (35-150)
[2024-04-20 13:11] LABS: Vitamin D 25 Hydroxy (D3) 27.8 ng/mL (30.0-100.0)
[2024-04-20 22:21] LABS: Vitamin B12 401 pg/mL (239-931)
== END ==
LOC: LAB 10:34
PROVIDERS: PCP Family Medicine; Referring Provider Family Medicine; Visit Provider Family Medicine
DX: R73.03 Prediabetes (principal); E78.5 Hyperlipidemia, unspecified; R30.0 Dysuria; R40.0 Somnolence; Z98.84 Bariatric surgery status; M79.7 Fibromyalgia
CPT/HCPCS: 36415; 80053; 80061; 81001; 82306; 82607; 83036; 85025

== ENCOUNTER → 2024-05-04 08:48 | Outpatient (CLI) | payer BC, SELFPAY ==
--- NOTE | 2024-05-04 08:49 | DI.US.S_ITS ---
PROCEDURE: US ABDOMEN LIMITED INDICATIONS: elevated bilirubin TECHNIQUE: Real-time focused scanning was performed of the abdomen, with image documentation. COMPARISON: None. FINDINGS: Liver measures 17.5 cm with steatosis. Gallbladder is absent. Common bile duct measures 4.7 mm. Visualized portions of the pancreas are unremarkable. IMPRESSION: Minimal hepatic steatosis. Dictated by: Niya Cummins M.D. on 05/04/2024 at 19:30 Approved by: Niya Cummins M.D. on 05/04/2024 at 19:31
== END ==
LOC: US 08:49
PROVIDERS: PCP Family Medicine; Referring Provider Family Medicine; Visit Provider Family Medicine
DX: R17 Unspecified jaundice (principal); Z90.49 Acquired absence of other specified parts of digestive tract
CPT/HCPCS: 76705

== ENCOUNTER → 2024-07-17 15:20 | Outpatient (CLI) | payer BC, SELFPAY | PROVIDERS: PCP Family Medicine; Referring Provider Physician Assistant Medical; Visit Provider Physician Assistant Medical | DX: R30.0 Dysuria (principal); N94.9 Unspecified condition associated with female genital organs and menstrual cycle; R35.0 Frequency of micturition | CPT/HCPCS: 87086; 87210 ==

== ENCOUNTER → 2024-11-05 13:53 | Outpatient (CLI) | payer BC, SELFPAY ==
--- NOTE | 2024-11-05 13:54 | DI.MG.S_ITS ---
BILATERAL DIGITAL SCREENING MAMMOGRAM 3D/2D WITH CAD: 11/05/2024 CLINICAL: Routine screening. Comparison is made to exams dated: 09/14/2023 mammogram, 08/20/2022 mammogram, and 07/26/2021 mammogram - [facility]. The breasts are almost entirely fatty (category a/<25% glandular tissue). Current study was also evaluated with a Computer Aided Detection (CAD) system. No significant masses, calcifications, or other findings are seen in either breast. There has been no significant interval change. IMPRESSION: NEGATIVE There is no mammographic evidence of malignancy. A 1 year screening mammogram is recommended. Based on the Tyrer Cuzick model (a risk assessment model) the patient's lifetime risk is 4.6% and her 10 year risk is 0.8%. According to the ACR, ACS, and NCCN guidelines, an annual breast MRI exam along with mammogram is recommended if the patient's lifetime risk is 20% or greater. This exam was interpreted at Station ID: [id number]. NOTE: For mammograms, a report in lay terms will be sent to the patient. Approximately 15% of breast malignancies will not be visualized mammographically. In the management of a palpable breast mass, a negative mammogram must not discourage biopsy of a clinically suspicious lesion. Electronically Signed By: Carlee acuña/nery:11/05/2024 17:50:57 letter sent: Normal Exam ACR BI-RADS Category 1: Negative
== END ==
PROVIDERS: PCP Family Medicine; Referring Provider Family Medicine; Visit Provider Family Medicine
DX: Z12.31 Encounter for screening mammogram for malignant neoplasm of breast (principal); R92.313 Mammographic fatty tissue density, bilateral breasts
CPT/HCPCS: 77063; 77067

== ENCOUNTER → 2024-11-11 09:57 | Outpatient (CLI) | payer BC, SELFPAY ==
[2024-11-11 11:03] LABS: Alanine Aminotransferase 35 IU/L (<35); Albumin 4.4 g/dL (3.5-5.0); Albumin Globulin Ratio 1.6 (1.0-2.8); Alkaline Phosphatase 96 U/L (38-126); Aspartate Aminotransferase 33 IU/L (14-36); BUN Creatinine Ratio 12.3 (6-22); Bilirubin Total 1.6 mg/dL (0.2-1.3); Blood Urea Nitrogen 10 mg/dL (7-17); Calcium 9.6 mg/dL (8.4-10.2); Carbon Dioxide 28 mmol/L (22-32); Chloride 103 mmol/L (98-107); Cholesterol 305 mg/dL (140-199); Estimated Glomerular Filt Rate > 60 mL/min (>60); Globulin 2.7 g/dL (1.7-4.1); Glucose 103 mg/dL (70-100); HDL Cholesterol 69 mg/dL (40-60); HEMOLYSIS < 15 (0-50); LDL Cholesterol Calculated 210 mg/dL (<100); Potassium 4.3 mmol/L (3.4-5.1); Sodium 138 mmol/L (137-145); Total Protein 7.1 g/dL (6.3-8.2); Triglycerides 131 mg/dL (35-150)
== END ==
LOC: LAB 09:57
PROVIDERS: PCP Family Medicine; Referring Provider Family Medicine; Visit Provider Family Medicine
DX: E78.5 Hyperlipidemia, unspecified (principal)
CPT/HCPCS: 36415; 80053; 80061

== ENCOUNTER → 2025-02-24 09:19 | Outpatient (CLI) | payer BC, SELFPAY ==
[2025-02-24 09:43] LABS: Hemoglobin A1C% w Est Avg Glu 5.3 % (4.0-6.0)
[2025-02-24 09:56] LABS: Alanine Aminotransferase 28 IU/L (<35); Albumin 4.2 g/dL (3.5-5.0); Albumin Globulin Ratio 1.7 (1.0-2.8); Alkaline Phosphatase 94 U/L (38-126); Aspartate Aminotransferase 29 IU/L (14-36); BUN Creatinine Ratio 9.5 (6-22); Bilirubin Total 1.6 mg/dL (0.2-1.3); Blood Urea Nitrogen 7 mg/dL (7-17); Calcium 9.3 mg/dL (8.4-10.2); Carbon Dioxide 28 mmol/L (22-32); Chloride 105 mmol/L (98-107); Cholesterol 212 mg/dL (140-199); Estimated Glomerular Filt Rate > 60 mL/min (>60); Globulin 2.5 g/dL (1.7-4.1); Glucose 101 mg/dL (70-99); HDL Cholesterol 68 mg/dL (40-60); HEMOLYSIS < 15 (0-50); LDL Cholesterol Calculated 117 mg/dL (<100); Sodium 138 mmol/L (137-145); Total Protein 6.7 g/dL (6.3-8.2); Triglycerides 136 mg/dL (35-150)
== END ==
PROVIDERS: PCP Family Medicine; Referring Provider Family Medicine; Visit Provider Family Medicine
DX: E78.5 Hyperlipidemia, unspecified (principal); R73.03 Prediabetes
CPT/HCPCS: 36415; 80053; 80061; 83036

== ENCOUNTER → 2025-08-28 08:59 | Outpatient (CLI) | payer BC, SELFPAY ==
[2025-08-28 12:14] LABS: Alanine Aminotransferase 28 IU/L (<35); Albumin 4.1 g/dL (3.5-5.0); Albumin Globulin Ratio 1.6 (1.0-2.8); Alkaline Phosphatase 88 U/L (38-126); Blood Urea Nitrogen 11 mg/dL (7-17); Calcium 9.1 mg/dL (8.4-10.2); Carbon Dioxide 24 mmol/L (22-32); Chloride 106 mmol/L (98-107); Cholesterol 207 mg/dL (140-199); Estimated Glomerular Filt Rate > 60 mL/min (>60); Globulin 2.6 g/dL (1.7-4.1); Glucose 92 mg/dL (70-99); HDL Cholesterol 71 mg/dL (40-60); HEMOLYSIS < 15 (0-50); Potassium 4.2 mmol/L (3.4-5.1); Sodium 138 mmol/L (137-145); Total Protein 6.7 g/dL (6.3-8.2); Triglycerides 121 mg/dL (35-150)
== END ==
PROVIDERS: PCP Family Medicine; Referring Provider Family Medicine; Visit Provider Family Medicine
DX: E78.5 Hyperlipidemia, unspecified (principal); R53.82 Chronic fatigue, unspecified
CPT/HCPCS: 36415; 80053; 80061; 87798